=== PATIENT | female | born 1960 | race Caucasian/White ===

== ENCOUNTER 2017-12-25 19:55 | Emergency (ER) | payer OTHER ==
[~2017-12-25] VITALS: Ht 165.1 cm; Wt 69.4 kg
[~2017-12-25 19:55] MED LIST: AMITRIPTYLINE H10 MG PO; ASPIR 8181 MG PO; AZITHROMYCIN250 MG PO; CLONAZEPAM1 MG PO; COMBIVENT RESPIM4 GM INH; CYCLOBENZAPRINE5 MG PO; DOXEPIN HCL75 MG PO; FLUOXETINE HCL20 MG PO; IBUPROFEN600 MG PO; NORCO 7.5-3251 EACH PO; PERCOCET 5-3251 EACH PO; PERCOCET 7.5-31 EACH PO; PREDNISONE20 MG PO; PRILOSEC40 MG PO; PROAIR HFA8.5 GM INH
[2017-12-26] MEDS ORDERED: NUCYNTA50 MG PO (00:11)
[2017-12-26] MEDS ORDERED: CRUTCH1 EACH MISC (00:17)
== END 2017-12-26 00:35 | disposition home or self-care (01) ==
LOC: ED 19:55
DX: S83.91XA Sprain of unspecified site of right knee, initial encounter (principal); J44.9 Chronic obstructive pulmonary disease, unspecified; F32.9 Major depressive disorder, single episode, unspecified; F17.200 Nicotine dependence, unspecified, uncomplicated; Z79.899 Other long term (current) drug therapy; X50.1XXA Overexertion from prolonged static or awkward postures, initial encounter
CPT/HCPCS: 73562; 99283

== ENCOUNTER 2018-01-23 15:27 | Emergency (ER) | payer BC ==
[~2018-01-23] VITALS: Ht 165.1 cm; Wt 69.4 kg
[~2018-01-23 15:27] MED LIST changes: +CRUTCH1 EACH MISC; +NUCYNTA50 MG PO
[2018-01-23] MEDS ORDERED: SIMVASTATIN40 MG PO (15:42)
[2018-01-23] MEDS ORDERED: PREDNISONE20 MG PO (16:04)
[2018-01-23] MEDS ORDERED: LEVAQUIN500 MG PO (16:04)
[2018-01-23] MEDS ORDERED: VENTOLIN HFA18 GM INH (17:04)
[2018-01-23] MEDS ORDERED: GUAIFENESIN-COD10 ML PO (17:04)
== END 2018-01-23 17:12 | disposition home or self-care (01) ==
LOC: ED 15:27
DX: J44.1 Chronic obstructive pulmonary disease with (acute) exacerbation (principal); J40 Bronchitis, not specified as acute or chronic; F17.200 Nicotine dependence, unspecified, uncomplicated; F32.9 Major depressive disorder, single episode, unspecified; Z79.899 Other long term (current) drug therapy
CPT/HCPCS: 71045; 94640; 99283; J7512

== ENCOUNTER 2018-12-30 10:15 | Emergency (ER) | payer OTHER ==
[~2018-12-30] VITALS: Ht 165.1 cm; Wt 69.4 kg
[~2018-12-30 10:15] MED LIST changes: +GUAIFENESIN-COD10 ML PO; +IPRAT-ALBUT 0.5-3 ML INH; +LEVAQUIN500 MG PO; +LEVAQUIN750 MG PO; +OMEPRAZOLE40 MG PO; +PREDNISONE10 MG PO; +SIMVASTATIN40 MG PO; +VENTOLIN HFA18 GM INH
--- OUTSIDE RECORDS SUMMARY | 2018-12-30 10:34 | XMS ---
PreManage Notification: JENA GOMEZ Security Director Of Safety And Security Events No recent Security Events currently on file [facility] There are no care providers on record at this time. Ramila has no Care Guidelines for this patient. Black VISIT COUNT (12 MO.) 4 LAURA Henley TOTAL 4 NOTE: Visits indicate total known visits. ED/C VISIT TRACKING (12 MO.) 12/30/2018 10:15 [facility] Zhang [place] TYPE: Emergency COMPLAINT: - DIZZINESS 08/28/2018 16:13 [facility] [place] TYPE: Emergency COMPLAINT: - DIFFICULTY BREATHING DIAGNOSES: - Nicotine dependence, unspecified, uncomplicated - Pneumonia, unspecified organism - Shortness of breath - Other longterm (current) drug therapy - Chronic obstructive pulmonary disease with acute lower respiratory infection - Major depressive disorder, single episode, unspecified 06/04/2018 17:27 [facility] [place] TYPE: Emergency COMPLAINT: - HEAD LACERATION DIAGNOSES: - Other longterm (current) drug therapy - Laceration without foreign body of scalp, initial encounter - Unspecified injury of head, initial encounter - Chronic obstructive pulmonary disease, unspecified - Major depressive disorder, single episode, unspecified - Nicotine dependence, unspecified, uncomplicated - Encounter for immunization - Striking against or struck by other objects, initial encounter 01/23/2018 15:27 [facility] [place] TYPE: Emergency COMPLAINT: - DIFFICULTY BREATHING DIAGNOSES: - Bronchitis, not specified as acute or chronic - Nicotine dependence, unspecified, uncomplicated - Shortness of breath - Other supersonic engineer (current) drug therapy - Major depressive disorder, single episode, unspecified - Chronic obstructive pulmonary disease with (acute) exacerbation INPATIENT VISIT TRACKING (12 MO.) No inpatient visits to display in this time frame [id number]
[2018-12-30] MEDS ORDERED: MECLIZINE HCL25 MG PO (12:05)
--- NOTE | 2019-01-01 07:49 | EKG ---
[facility] [address] [facility] [place] [address] Signed Normal sinus rhythm Normal ECG No previous ECGs available Confirmed by PERLA CRISOSTOMO MD ([id number]) on 01/01/2019 7:49:07 AM Electronically Signed By: PERLA CRISOSTOMO MD 01/01/19 0749 PATIENT NAME: JENA GOMEZ SHRUTI Electrocardiogram DATE OF : 62 PHYSICIAN: PERLA CRISOSTOMO MD REPORT #: [id number] REPORT IS CONFIDENTIAL AND NOT TO BE RELEASED WITHOUT AUTHORIZATION
== END 2018-12-30 12:27 | disposition home or self-care (01) ==
LOC: ED 10:15
DX: R42 Dizziness and giddiness (principal); J44.9 Chronic obstructive pulmonary disease, unspecified; F32.9 Major depressive disorder, single episode, unspecified; F17.200 Nicotine dependence, unspecified, uncomplicated; Z79.899 Other long term (current) drug therapy
CPT/HCPCS: 71045; 80053; 84484; 85025; 87502; 93005; 93010; 99284-25

== ENCOUNTER 2021-06-20 15:18 | Emergency (ER) | payer MEDICARE ==
[~2021-06-20] VITALS: Ht 165.1 cm; Wt 68.0 kg
[~2021-06-20 15:18] MED LIST changes: +MECLIZINE HCL25 MG PO; +MEDROL4 MG PO; +NAPROSYN500 MG PO; +SINGULAIR10 MG PO
--- OUTSIDE RECORDS SUMMARY | 2021-06-20 15:20 | XMS ---
PreManage Notification: JENA GOMEZ Security Radio Performer Events No recent Security Events currently on file CRITERIA MET - [facility] CARE PROVIDERS JACKIE HAWKINS Physician Entry Level Paralegal 12/31/2018-Current PHONE: Unknown Ramila has no Care Guidelines for this patient. E.DMelisa VISIT COUNT (12 MO.) 1 LAURA Henley TOTAL 1 NOTE: Visits indicate total known visits. ED/UCC VISIT TRACKING (12 MO.) 06/20/2021 15:19 [facility] Zhang [place] TYPE: Emergency COMPLAINT: - FALL, L SIDE OF FACE PAIN, NAUSEA, DIZZINESS INPATIENT VISIT TRACKING (12 MO.) No inpatient visits to display in this time frame [email or web address]
[2021-06-20] MEDS ORDERED: LIDOCAINE HCL100 ML MT (15:32)
[2021-06-20] MEDS ORDERED: NYSTATIN100000 UN1 PO (15:32)
[2021-06-20] MEDS ORDERED: CEPHALEXIN500 M1 PO (18:51)
[2021-06-20] MEDS ORDERED: ONDANSETRON ODT8 MG PO (18:51)
== END 2021-06-20 19:36 | disposition home or self-care (01) ==
LOC: ED 15:18
DX: S06.0X0A Concussion without loss of consciousness, initial encounter (principal); K12.1 Other forms of stomatitis; N39.0 Urinary tract infection, site not specified; W10.9XXA Fall (on) (from) unspecified stairs and steps, initial encounter; J43.9 Emphysema, unspecified; F17.200 Nicotine dependence, unspecified, uncomplicated; Z79.899 Other long term (current) drug therapy
CPT/HCPCS: 80053; 81001; 85025; 87088; 96374; 96375; 99283-25; J0696; J1885; J2405; J7030

== ENCOUNTER 2022-01-22 16:05 | Emergency (ER) | payer OTHER, MEDICARE ==
[~2022-01-22] VITALS: Ht 165.1 cm; Wt 68.0 kg
[~2022-01-22 16:05] MED LIST changes: +CEPHALEXIN500 M1 PO; +LIDOCAINE HCL100 ML MT; +NYSTATIN100000 UN1 PO; +ONDANSETRON ODT8 MG PO
--- OUTSIDE RECORDS SUMMARY | 2022-01-22 16:08 | XMS ---
PreManage Notification: JENA GOMEZ Security Build Automation Engineer Events No recent Security Events currently on file CRITERIA MET - [facility] CARE PROVIDERS JACKIE HAWKINS Physician Bridge Worker Apprentice 06/21/2021-Current PHONE: Unknown Ramila has no Care Guidelines for this patient. EBarbara VISIT COUNT (12 MO.) 2 LAURA Henley TOTAL 2 NOTE: Visits indicate total known visits. ED/UCC VISIT TRACKING (12 MO.) 01/22/2022 16:05 [facility] [place] TYPE: Emergency COMPLAINT: - FALL/LOWER BACK PAIN HEAD PAIN 06/20/2021 15:19 [facility] [place] TYPE: Emergency COMPLAINT: - FALL DIAGNOSES: - Nicotine dependence, unspecified, uncomplicated - Concussion without loss of consciousness, initial encounter - Other fdc (current) drug therapy - Other forms of stomatitis - Nausea with vomiting, unspecified - Fall (on) (from) unspecified stairs and steps, initial encounter - Urinary tract infection, site not specified - Emphysema, unspecified INPATIENT VISIT TRACKING (12 MO.) No inpatient visits to display in this time frame [id number]
--- NOTE | 2022-01-23 18:23 | EKG ---
[facility] [address] [place], [place] [address] Signed Normal sinus rhythm Normal ECG When compared with ECG of 22-JAN-2022 17:42, (Unconfirmed) Previous ECG also normal sinus rhythm Confirmed by ELISABET VILLEGAS MD ([id number]) on 01/23/2022 6:23:13 PM Electronically Signed By: ELISABET VILLEGAS MD 01/23/22 1823 PATIENT NAME: ELPIDIO GOMEZHADLEY BAHENA Electrocardiogram DATE OF : 62 PHYSICIAN: ELISABET VILLEGAS MD REPORT #: [id number] REPORT IS CONFIDENTIAL AND NOT TO BE RELEASED WITHOUT AUTHORIZATION
== END 2022-01-22 18:54 | disposition home or self-care (01) ==
LOC: ED 16:05
DX: M54.2 Cervicalgia (principal); M54.50 Low back pain, unspecified; J43.9 Emphysema, unspecified; G47.00 Insomnia, unspecified; F17.200 Nicotine dependence, unspecified, uncomplicated; Z79.899 Other long term (current) drug therapy; W19.XXXA Unspecified fall, initial encounter; W22.8XXA Striking against or struck by other objects, initial encounter
CPT/HCPCS: 70450; 72125; 72128; 72131; 93005; 93010; 96374; 99284-25; J1170

== ENCOUNTER 2022-02-01 06:40 | Day surgery (SDC) | payer MEDICARE ==
[~2022-02-01] VITALS: Ht 165.1 cm; Wt 67.3 kg
--- NOTE | 2022-02-01 06:59 | NUR ---
FELL AT 2 WEEKS AGO. JUST FELL ON 2 STEP LADDER ? DIZZY THEN AFTERWARDS HAS PAIN R LOWER LEG ABOVE ANKLE INFRONT. WAS SEEN IN [facility] .
--- NOTE | 2022-02-01 09:06 | NUR ---
02/01/22 0906 Meghan Torres 0900 PATIENT SLEEPING. OPENS EYES WITH VERBAL STIMULI, BACK TO SLEEP WHEN NOT STIMULATED. RESP EVEN AND UNLABORED, NC AT 4 LITERS, SATS 100%, DECREASED TO 2 LITERS.
--- NOTE | 2022-02-01 11:04 | OR ---
[facility] [address] [place], [place] [address] Signed DATE OF OPERATION: 02/01/2022 SURGEON: Jazzmine James MD PREOPERATIVE DIAGNOSES: 1. History of hyperplastic colonic polyps in 2008 (48). 2. Internal anal skin tag. 3. Angulation at 50 cm. 4. Change in bowel habits with worsening constipation. 5. Probable history of pruritus ani. POSTOPERATIVE DIAGNOSES: 1. Long redundant colon. 2. Moderately poor bowel prep. 3. 4 mm polyp at 25 cm. 4. Mild melanosis coli. PROCEDURE: Colonoscopy with hot biopsy. ESTIMATED BLOOD LOSS: None. INDICATIONS: Cara is a 61-year-old female, asked to see me for followup colonoscopy. I helped with a colonoscopy back in 2008 at the age of 48. She talked about constipation back at that time. We did remove a hyperplastic polyp. She also appeared to have some mild pruritus ani at that time. She had an internal anal skin tag. She had an angulation at around 50 cm in her colon. Her prep had been fairly poor. We actually asked her to come back around a year. We encouraged her to use a double bowel prep. Her had last year from hepatitis C virus and liver failure. She has been on disability. She does work part-time at a local hotel doing laundry. She has been a long-time heavy smoker with significant COPD and a productive cough. Her granddaughter actually came with her to the office. There is no family history of colon cancer or polyps. She thinks maybe her constipation is worse. Therefore, she is describing a change in bowel habits. She has been using protein shakes to help with her constipation and her nutritional status. In the office, I had given her a pamphlet on colonoscopy. She understands the nature of the test. We had reviewed the risk including, but not limited to gas bloating, crampy abdominal pain, bleeding, perforation requiring surgery, and missed diagnosis. Also because of her overall frail status, her long history of smoking with COPD and asthma Electronically Signed By: JAZZMINE JAMES MD 02/01/22 1104 PATIENT NAME: CARA GOMEZ OPERATIVE REPORT DATE OF : 62 REPORT #: [id number] PHYSICIAN: JAZZMINE JAMES MD PCP: HINA HAWKINS REPORT IS CONFIDENTIAL AND NOT TO BE RELEASED WITHOUT AUTHORIZATION [facility] [address] [place], [place] [address] Signed component along with her daily need for escitalopram as well as clonazepam and doxepin, we asked that an anesthesia provider help with increased monitoring sedation with propofol. That proved to be a ortiz decision as she did quite well in that regard. She had expressed understanding and wished to proceed. PROCEDURE NOTE: Cara was taken into the endoscopy suite and placed in the left lateral decubitus position. She was given monitored anesthesia care with propofol per our nurse welder/fitter. A digital rectal exam was performed and we immediately encountered liquid particulate stool matter. She has good sphincter tone. Really, no external hemorrhoids. A little erythema around the anus from the prep, but otherwise seems to be quite good. The adult colonoscope was introduced and advanced under direct visualization of the camera. Unfortunately, her prep was moderately poor once again. She took extra sedation. We used some abdominal compression. She has a very thin abdominal wall, but very compliant without much muscle tone. We could easily see the tip of our light pass through the colon. It took us a while to get through all the long redundant colon and at least three areas of angulated colon. We irrigated and suctioned out quite a bit of particulate stool matter. We finally made it past the hepatic flexure and then down into the cecum itself. We could see the appendiceal orifice and ileocecal valve. We could see some liquid stool coming out of the ileocecal valve. We could easily see the light in the right lower quadrant of her abdomen and palpate that area. The scope was then slowly withdrawn. We took pictures throughout for photodocumentation. We continued to irrigate and suction out stool as we went. We had to clean the camera few times. We found just a very tiny 4 mm polyp at about 25 cm. It was easily removed with a hot biopsy forceps. We had retroflexed the scope in the rectum and despite all the irrigation and suction, we could not see the anus itself due to the liquid particulate stool matter. After this, the gas was suctioned out and colonoscope removed. Cara tolerated the procedure quite well. RECOMMENDATIONS: I will see Cara back in my office in 7 to 14 days to review her results. We will discuss the tiger striping we found throughout her colon consistent with melanosis coli. In the future, she might need 2 full days of liquid diet and bowel prep. Jazzmine James MD ALB/MODL /[id number] Electronically Signed By: JAZZMINE JAMES MD 02/01/22 1104 PATIENT NAME: CARA GOMEZ SHRUTI OPERATIVE REPORT DATE OF : 62 REPORT #: [id number] PHYSICIAN: JAZZMINE JAMES MD PCP: HINA HAWKINS REPORT IS CONFIDENTIAL AND NOT TO BE RELEASED WITHOUT AUTHORIZATION [address] [place] [address] Signed cc: MD Hina Koroma PA Copies: JAZZMINE JAMES MD, LINDA PA ~ Electronically Signed By: JAZZMINE JAMES MD 02/01/22 1104 PATIENT NAME: CARA GOMEZ OPERATIVE REPORT DATE OF : 62 REPORT #: [id number] PHYSICIAN: JAZZMINE JAMES MD PCP: HINA HAWKINS REPORT IS CONFIDENTIAL AND NOT TO BE RELEASED WITHOUT AUTHORIZATION
--- NOTE | 2022-02-05 14:38 | PATH ---
[facility] [address] [place], [place] [address] Signed SPECIMEN(S): A COLON POLYP AT 25 CM SPECIMEN SOURCE: A. COLON POLYP AT 25 CM CLINICAL HISTORY: Hx of hyperplastic polyps; change in bowel habits; constipation. Post op: Polyp. FINAL PATHOLOGIC DIAGNOSIS: Colon, polyp at 25 cm, polypectomy: - Hyperplastic polyp. - Negative for dysplasia or malignancy. NAL:cml:C2NR MICROSCOPIC EXAMINATION: Histologic sections of all submitted blocks are examined by light microscopy. These findings, together with the gross examination, support the pathologic diagnosis. GROSS DESCRIPTION: The specimen, labeled "NM, colon polyp at 25 cm," is received in formalin and consists of one henry soft tissue fragment(s) that measure 0.5 cm in greatest dimension. The specimen is entirely submitted in cassette (A1). JS (under the direct supervision of a pathologist) The Gross Description was prepared using a voice recognition system. The report was reviewed for accuracy; however, sound-alike word errors, addition and/or deletions may occur. If there is any question about this report, please contact Client Services. PERFORMING LABORATORY: The technical component was performed by [facility], [address] [place] [id number] ([employer]: Mirian Tilley MD; CLIA# [id number]). [facility] [address] [address] (CLIA# [id number]). Diagnostician: Shelley Diallo MD Pathologist Electronically Signed 02/05/2022 PATIENT NAME: JENA GOMEZ PATHOLOGY DATE OF : 62 REPORT #: [id number] PHYSICIAN: RAFA PATHOLOGY PCP: JACKIE HAWKINS REPORT IS CONFIDENTIAL AND NOT TO BE RELEASED WITHOUT AUTHORIZATION [address] [address] Signed Copies: ~ PATIENT NAME: JENA GOMEZ PATHOLOGY DATE OF : 62 REPORT #: [id number] PHYSICIAN: RAFA PATHOLOGY PCP: JACKIE HAWKINS REPORT IS CONFIDENTIAL AND NOT TO BE RELEASED WITHOUT AUTHORIZATION
== END 2022-02-01 08:46 | disposition home or self-care (01) ==
LOC: OPS 06:40 → DS 06:40 → OPS 07:45 → DS 07:45 → OPS 08:46
PROVIDERS: ATTEND Colon & Rectal Surgery
PROC: 0DBE8ZZ Excision of Large Intestine, Via Natural or Artificial Opening Endoscopic (ICD-10-PCS; principal; 2022-02-01 07:45)
DX: K59.09 Other constipation (principal); K63.5 Polyp of colon; Q43.8 Other specified congenital malformations of intestine; K63.89 Other specified diseases of intestine; K64.4 Residual hemorrhoidal skin tags; K21.9 Gastro-esophageal reflux disease without esophagitis; J43.9 Emphysema, unspecified; F17.210 Nicotine dependence, cigarettes, uncomplicated; E78.5 Hyperlipidemia, unspecified; Z87.19 Personal history of other diseases of the digestive system
CPT/HCPCS: J2001; J2704; J7121

== ENCOUNTER 2022-02-03 19:33 | Emergency (ER) | payer MEDICARE ==
[~2022-02-03] VITALS: Ht 165.1 cm; Wt 63.5 kg
--- OUTSIDE RECORDS SUMMARY | 2022-02-03 19:36 | XMS ---
PreManage Notification: JENA GOMEZ Security Life Cycle Assessment Analyst Events No recent Security Events currently on file CRITERIA MET - [facility] - 2 Visits in 30 Days CARE PROVIDERS JACKIE HAWKINS Physician Old Testament Professor 06/21/2021-Current PHONE: Unknown Ramila has no Care Guidelines for this patient. Black VISIT COUNT (12 MO.) 3 [facility] TOTAL 3 NOTE: Visits indicate total known visits. ED/C VISIT TRACKING (12 MO.) 02/03/2022 19:34 [facility]UR[facility] Zhang [place] TYPE: Emergency COMPLAINT: - ANKLE PAIN 01/22/2022 16:05 [facility]UR[facility] Zhang [place] TYPE: Emergency COMPLAINT: - FALL/LOWER BACK PAIN HEAD PAIN DIAGNOSES: - Striking against or struck by other objects, initial encounter - Other chcf (current) drug therapy - Emphysema, unspecified - Unspecified fall, initial encounter - LOW BACK PAIN, UNSPECIFIED - Cervicalgia - Nicotine dependence, unspecified, uncomplicated - Insomnia, unspecified 06/20/2021 15:19 LAURA Zhang [place] TYPE: Emergency COMPLAINT: - FALL DIAGNOSES: - Nicotine dependence, unspecified, uncomplicated - Concussion without loss of consciousness, initial encounter - Other longwall headgate operator (current) drug therapy - Other forms of stomatitis - Nausea with vomiting, unspecified - Fall (on) (from) unspecified stairs and steps, initial encounter - Urinary tract infection, site not specified - Emphysema, unspecified INPATIENT VISIT TRACKING (12 MO.) No inpatient visits to display in this time frame [id number]
[2022-02-03] MEDS ORDERED: ESCITALOPRAM OX20 MG PO (19:47)
[2022-02-03] MEDS ORDERED: OXYBUTYNIN CHLO15 MG PO (19:47)
[2022-02-03] MEDS ORDERED: MOBIC15 MG PO (20:50)
== END 2022-02-03 21:09 | disposition home or self-care (01) ==
LOC: ED 19:33
DX: S93.401A Sprain of unspecified ligament of right ankle, initial encounter (principal); J43.9 Emphysema, unspecified; G47.00 Insomnia, unspecified; F17.200 Nicotine dependence, unspecified, uncomplicated; Z79.899 Other long term (current) drug therapy; W19.XXXA Unspecified fall, initial encounter
CPT/HCPCS: 73610; 99283-25

== ENCOUNTER 2022-02-27 09:46 | Emergency (ER) | payer MEDICARE, OTHER ==
[~2022-02-27] VITALS: Ht 165.1 cm; Wt 59.9 kg
[~2022-02-27 09:46] MED LIST changes: +ESCITALOPRAM OX20 MG PO; +MOBIC15 MG PO; +OXYBUTYNIN CHLO15 MG PO
--- OUTSIDE RECORDS SUMMARY | 2022-02-27 09:48 | XMS ---
PreManage Notification: JENA GOMEZ Security Compliance Project Manager Events No recent Security Events currently on file CRITERIA MET - [facility] - 2 Visits in 30 Days CARE PROVIDERS JACKIE HAWKINS Physician Sugar Controller 06/21/2021-Current PHONE: Unknown Ramila has no Care Guidelines for this patient. Black VISIT COUNT (12 MO.) 4 [facility] TOTAL 4 NOTE: Visits indicate total known visits. ED/C VISIT TRACKING (12 MO.) 02/27/2022 09:46 [facility] Zhang [place] TYPE: Emergency COMPLAINT: - CONSTIPATION 02/03/2022 19:34 [facility] [place] TYPE: Emergency COMPLAINT: - ANKLE PAIN DIAGNOSES: - Sprain of unspecified ligament of right ankle, initial encounter - Unspecified injury of right ankle, initial encounter - Nicotine dependence, unspecified, uncomplicated - Insomnia, unspecified - Unspecified fall, initial encounter - Other intermediate school teacher (current) drug therapy - Emphysema, unspecified 01/22/2022 16:05 [facility]UR[facility] Zhang [place] TYPE: Emergency COMPLAINT: - FALL/LOWER BACK PAIN HEAD PAIN DIAGNOSES: - Striking against or struck by other objects, initial encounter - Other prison (current) drug therapy - Emphysema, unspecified - Unspecified fall, initial encounter - LOW BACK PAIN, UNSPECIFIED - Cervicalgia - Nicotine dependence, unspecified, uncomplicated - Insomnia, unspecified - Low back pain, unspecified 06/20/2021 15:[address] [facility] [place] TYPE: Emergency COMPLAINT: - FALL DIAGNOSES: - Nicotine dependence, unspecified, uncomplicated - Concussion without loss of consciousness, initial encounter - Other prison (current) drug therapy - Other forms of stomatitis - Nausea with vomiting, unspecified - Fall (on) (from) unspecified stairs and steps, initial encounter - Urinary tract infection, site not specified - Emphysema, unspecified INPATIENT VISIT TRACKING (12 MO.) No inpatient visits to display in this time frame [id number]
[2022-02-27] MEDS ORDERED: FLEET ENEMA133 ML PR (11:29)
== END 2022-02-27 11:38 | disposition home or self-care (01) ==
LOC: ED 09:46
DX: K59.00 Constipation, unspecified (principal); J43.9 Emphysema, unspecified; G47.00 Insomnia, unspecified; F17.200 Nicotine dependence, unspecified, uncomplicated; Z79.899 Other long term (current) drug therapy; Z79.51 Long term (current) use of inhaled steroids
CPT/HCPCS: 74022; 81001; 99283-25

== ENCOUNTER 2022-04-15 12:22 | Emergency (ER) | payer MEDICARE, OTHER ==
[~2022-04-15] VITALS: Ht 165.1 cm; Wt 63.0 kg
[~2022-04-15 12:22] MED LIST changes: +FLEET ENEMA133 ML PR
--- OUTSIDE RECORDS SUMMARY | 2022-04-15 14:13 | XMS ---
PreManage Notification: JENA GOMEZ Security Motor And Generator Brush Maker Events No recent Security Events currently on file CRITERIA MET - [facility] - 2 Visits in 30 Days CARE PROVIDERS JACKIE HAWKINS Physician Clinical Physician Assistant 06/21/2021-Current PHONE: Unknown Ramila has no Care Guidelines for this patient. Black VISIT COUNT (12 MO.) 6 [facility] TOTAL 6 NOTE: Visits indicate total known visits. ED/C VISIT TRACKING (12 MO.) 04/15/2022 12:23 [facility] Zhang [place] TYPE: Emergency COMPLAINT: - SHORTNESS OF BREATH 04/14/2022 19:28 [facility] [place] TYPE: Emergency COMPLAINT: - SHORTNESS OF BREATH 02/27/2022 09:46 [facility] [place] TYPE: Emergency COMPLAINT: - CONSTIPATION DIAGNOSES: - terminal operations supervisor (current) use of inhaled steroids - Insomnia, unspecified - Nicotine dependence, unspecified, uncomplicated - Other shelter (current) drug therapy - Constipation, unspecified - Emphysema, unspecified 02/03/2022 19:34 [facility] [place] TYPE: Emergency COMPLAINT: - ANKLE PAIN DIAGNOSES: - Sprain of unspecified ligament of right ankle, initial encounter - Unspecified injury of right ankle, initial encounter - Nicotine dependence, unspecified, uncomplicated - Insomnia, unspecified - Unspecified fall, initial encounter - Other shelter (current) drug therapy - Emphysema, unspecified 01/22/2022 16:05 [facility] Zhang [place] TYPE: Emergency COMPLAINT: - FALL/LOWER BACK PAIN HEAD PAIN DIAGNOSES: - Striking against or struck by other objects, initial encounter - Other shelter (current) drug therapy - Emphysema, unspecified - Unspecified fall, initial encounter - LOW BACK PAIN, UNSPECIFIED - Cervicalgia - Nicotine dependence, unspecified, uncomplicated - Insomnia, unspecified - Low back pain, unspecified 06/20/2021 15:19 [facility] [place] TYPE: Emergency COMPLAINT: - FALL DIAGNOSES: - Nicotine dependence, unspecified, uncomplicated - Concussion without loss of consciousness, initial encounter - Other shelter (current) drug therapy - Other forms of stomatitis - Nausea with vomiting, unspecified - Fall (on) (from) unspecified stairs and steps, initial encounter - Urinary tract infection, site not specified - Emphysema, unspecified INPATIENT VISIT TRACKING (12 MO.) No inpatient visits to display in this time frame [id number]
== END 2022-04-15 15:10 | disposition home or self-care (01) ==
LOC: ED 12:22
DX: J44.1 Chronic obstructive pulmonary disease with (acute) exacerbation (principal); F17.200 Nicotine dependence, unspecified, uncomplicated
CPT/HCPCS: 94640; 99406; J7512

== ENCOUNTER 2022-06-22 12:25 | Emergency (ER) | payer MEDICARE, OTHER ==
[~2022-06-22] VITALS: Ht 165.1 cm; Wt 63.0 kg
--- OUTSIDE RECORDS SUMMARY | 2022-06-22 12:28 | XMS ---
PreManage Notification: JENA GOMEZ Security City Councilman Events No recent Security Events currently on file CRITERIA MET - [facility] - 6 ED Visits in 6 Months CARE PROVIDERS JACKIE HAWKINS Physician Vice President Digital Strategist 06/21/2021-Current PHONE: Unknown Ramila has no Care Guidelines for this patient. EBarbara VISIT COUNT (12 MO.) 6 [facility] TOTAL 6 NOTE: Visits indicate total known visits. ED/C VISIT TRACKING (12 MO.) 06/22/2022 12:26 [facility] [place] TYPE: Emergency COMPLAINT: - SOB 04/15/2022 12:23 [facility] [place] TYPE: Emergency COMPLAINT: - SHORTNESS OF BREATH DIAGNOSES: - Shortness of breath - Nicotine dependence, cigarettes, uncomplicated - Chronic obstructive pulmonary disease with (acute) exacerbation - Nicotine dependence, unspecified, uncomplicated 04/14/2022 19:28 [facility] [place] TYPE: Emergency COMPLAINT: - SHORTNESS OF BREATH DIAGNOSES: - Shortness of breath - Chronic obstructive pulmonary disease with (acute) exacerbation - Nicotine dependence, unspecified, uncomplicated - Other nursing home (current) drug therapy 02/27/2022 09:46 [facility] [place] TYPE: Emergency COMPLAINT: - CONSTIPATION DIAGNOSES: - terminal press operator (current) use of inhaled steroids - Insomnia, unspecified - Nicotine dependence, unspecified, uncomplicated - Other supervisor long goods (current) drug therapy - Constipation, unspecified - Emphysema, unspecified 02/03/2022 19:[address] [facility] [place] [place] TYPE: Emergency COMPLAINT: - ANKLE PAIN DIAGNOSES: - Sprain of unspecified ligament of right ankle, initial encounter - Unspecified injury of right ankle, initial encounter - Nicotine dependence, unspecified, uncomplicated - Insomnia, unspecified - Unspecified fall, initial encounter - Other nursing home (current) drug therapy - Emphysema, unspecified 01/22/2022 16:[address] [facility] [address] [place] TYPE: Emergency COMPLAINT: - FALL/LOWER BACK PAIN HEAD PAIN DIAGNOSES: - Striking against or struck by other objects, initial encounter - Other supervisor long goods (current) drug therapy - Emphysema, unspecified - Unspecified fall, initial encounter - LOW BACK PAIN, UNSPECIFIED - Cervicalgia - Nicotine dependence, unspecified, uncomplicated - Insomnia, unspecified - Low back pain, unspecified INPATIENT VISIT TRACKING (12 MO.) No inpatient visits to display in this time frame [id number]
[2022-06-22] MEDS ORDERED: PREDNISONE20 MG PO (13:16)
[2022-06-22] MEDS ORDERED: DOXYCYCLINE HY100 MG PO (13:22)
== END 2022-06-22 14:20 | disposition home or self-care (01) ==
LOC: ED 12:25
DX: J43.9 Emphysema, unspecified (principal); F17.200 Nicotine dependence, unspecified, uncomplicated; Z79.899 Other long term (current) drug therapy
CPT/HCPCS: 71045; 94640; 99285-25; J7512

== ENCOUNTER 2022-09-21 11:12 | Emergency (ER) | payer MEDICARE, OTHER ==
[~2022-09-21] VITALS: Ht 165.1 cm; Wt 63.0 kg
[~2022-09-21 11:12] MED LIST changes: +DOXYCYCLINE HY100 MG PO
--- OUTSIDE RECORDS SUMMARY | 2022-09-21 11:15 | XMS ---
PreManage Notification: JENA GOMEZ Security Property Management Coordinator Events No recent Security Events currently on file CRITERIA MET - [facility] CARE PROVIDERS JACKIE HAWKINS Physician Records Custodian 06/21/2021-Current PHONE: Unknown Ramila has no Care Guidelines for this patient. EBarbara VISIT COUNT (12 MO.) 7 [facility] TOTAL 7 NOTE: Visits indicate total known visits. ED/C VISIT TRACKING (12 MO.) 09/21/2022 11:12 [facility] [place] TYPE: Emergency COMPLAINT: - COLD SYMPTOMS 06/22/2022 12:26 [facility] [place] TYPE: Emergency COMPLAINT: - SOB DIAGNOSES: - Other longwall shearer operator (current) drug therapy - Emphysema, unspecified - Nicotine dependence, unspecified, uncomplicated - Cough, unspecified 04/15/2022 12:23 [facility] [place] TYPE: Emergency COMPLAINT: - SHORTNESS OF BREATH DIAGNOSES: - Chronic obstructive pulmonary disease with (acute) exacerbation - Shortness of breath - Nicotine dependence, unspecified, uncomplicated - Nicotine dependence, cigarettes, uncomplicated 04/14/2022 19:28 [facility] [place] TYPE: Emergency COMPLAINT: - SHORTNESS OF BREATH DIAGNOSES: - Nicotine dependence, unspecified, uncomplicated - Shortness of breath - Other detention (current) drug therapy - Chronic obstructive pulmonary disease with (acute) exacerbation 02/27/2022 09:46 [facility] [place] TYPE: Emergency COMPLAINT: - CONSTIPATION DIAGNOSES: - Nicotine dependence, unspecified, uncomplicated - correction (current) use of inhaled steroids - Emphysema, unspecified - Other detention (current) drug therapy - Insomnia, unspecified - Constipation, unspecified 02/03/2022 19:34 [facility] [place] TYPE: Emergency COMPLAINT: - ANKLE PAIN DIAGNOSES: - Nicotine dependence, unspecified, uncomplicated - Sprain of unspecified ligament of right ankle, initial encounter - Other longwall shearer operator (current) drug therapy - Insomnia, unspecified - Unspecified injury of right ankle, initial encounter - Emphysema, unspecified - Unspecified fall, initial encounter 01/22/2022 16:05 [facility] [place] TYPE: Emergency COMPLAINT: - FALL/LOWER BACK PAIN HEAD PAIN DIAGNOSES: - Emphysema, unspecified - Striking against or struck by other objects, initial encounter - Insomnia, unspecified - Cervicalgia - Unspecified fall, initial encounter - Other detention (current) drug therapy - Low back pain, unspecified - Nicotine dependence, unspecified, uncomplicated - LOW BACK PAIN, UNSPECIFIED INPATIENT VISIT TRACKING (12 MO.) No inpatient visits to display in this time frame [email or web address]
[2022-09-21] MEDS ORDERED: DOXYCYCLINE HY100 MG PO (12:54)
[2022-09-21] MEDS ORDERED: PREDNISONE20 MG PO (12:54)
== END 2022-09-21 14:01 | disposition home or self-care (01) ==
LOC: ED 11:12
DX: J44.1 Chronic obstructive pulmonary disease with (acute) exacerbation (principal); F17.200 Nicotine dependence, unspecified, uncomplicated; Z79.899 Other long term (current) drug therapy
CPT/HCPCS: 71045; 94640; 99285-25; J7512

== ENCOUNTER 2022-12-22 17:52 | Emergency (ER) | payer MEDICARE, OTHER ==
[~2022-12-22] VITALS: Ht 165.1 cm; Wt 73.4 kg
--- OUTSIDE RECORDS SUMMARY | 2022-12-22 17:55 | XMS ---
PreManage Notification: JENA GOMEZ Security Services Coordinator Events No recent Security Events currently on file CRITERIA MET - [place] CARE PROVIDERS -[place]- Dentist: Auto Body Repairer [employer] [facility] PHONE: [phone] JACKIE HAWKINS Physician Advertising Clerk 06/21/2021-Current PHONE: Unknown Ramila has no Care Guidelines for this patient. Black VISIT COUNT (12 MO.) Lovely Henley TOTAL 8 NOTE: Visits indicate total known visits. ED/UCC VISIT TRACKING (12 MO.) 12/22/2022 17:52 [facility] [place] TYPE: Emergency COMPLAINT: - SHORTNESS OF BREATH 09/21/2022 11:12 [facility] [place] TYPE: Emergency COMPLAINT: - COLD SYMPTOMS DIAGNOSES: - Chronic obstructive pulmonary disease with (acute) exacerbation - Nicotine dependence, unspecified, uncomplicated - Other quality control assessor (current) drug therapy - Cough, unspecified 06/22/2022 12:26 [facility] [place] TYPE: Emergency COMPLAINT: - SOB DIAGNOSES: - Other long-term (current) drug therapy - Emphysema, unspecified - Nicotine dependence, unspecified, uncomplicated - Cough, unspecified 04/15/2022 12:23 [facility] [place] [place] TYPE: Emergency COMPLAINT: - SHORTNESS OF BREATH DIAGNOSES: - Chronic obstructive pulmonary disease with (acute) exacerbation - Shortness of breath - Nicotine dependence, unspecified, uncomplicated - Nicotine dependence, cigarettes, uncomplicated 04/14/2022 19:28 [facility] [place] [place] TYPE: Emergency COMPLAINT: - SHORTNESS OF BREATH DIAGNOSES: - Nicotine dependence, unspecified, uncomplicated - Shortness of breath - Other long-term (current) drug therapy - Chronic obstructive pulmonary disease with (acute) exacerbation 02/27/2022 09:46 [facility] [place] TYPE: Emergency COMPLAINT: - CONSTIPATION DIAGNOSES: - Constipation, unspecified - Nicotine dependence, unspecified, uncomplicated - nursing home (current) use of inhaled steroids - Emphysema, unspecified - Other quality control assessor (current) drug therapy - Insomnia, unspecified 02/03/2022 19:34 [facility] [place] TYPE[place] COMPLAINT: - ANKLE PAIN DIAGNOSES: - Emphysema, unspecified - Unspecified fall, initial encounter - Nicotine dependence, unspecified, uncomplicated - Sprain of unspecified ligament of right ankle, initial encounter - Other quality control assessor (current) drug therapy - Insomnia, unspecified - Unspecified injury of right ankle, initial encounter 01/22/2022 16:05 [facility] [place] TYPE: [place] COMPLAINT: - FALL/LOWER BACK PAIN HEAD PAIN DIAGNOSES: - Low back pain, unspecified - Nicotine dependence, unspecified, uncomplicated - LOW BACK PAIN, UNSPECIFIED - Emphysema, unspecified - Striking against or struck by other objects, initial encounter - Insomnia, unspecified - Cervicalgia - Unspecified fall, initial encounter - Other long-term (current) drug therapy INPATIENT VISIT TRACKING (12 MO.) No inpatient visits to display in this time frame [id number]
--- NOTE | 2022-12-23 07:17 | EKG ---
[facility] [address] [place], [place] [address] Signed Normal sinus rhythm Normal ECG When compared with ECG of 14-APR-2022 19:39, No significant change was found Confirmed by ELISABET VILLEGAS MD ([id number]) on 12/23/2022 7:17:34 AM Electronically Signed By: ELISABET VILLEGAS MD 12/23/22 0717 PATIENT NAME: DELONTEBELLEJAYCEJENA BAHENA Electrocardiogram DATE OF : 62 PHYSICIAN: ELISABET VILLEGAS MD REPORT #: [id number] REPORT IS CONFIDENTIAL AND NOT TO BE RELEASED WITHOUT AUTHORIZATION
== END 2022-12-22 19:35 | disposition home or self-care (01) ==
LOC: ED 17:52
DX: J44.1 Chronic obstructive pulmonary disease with (acute) exacerbation (principal); G47.00 Insomnia, unspecified; F17.200 Nicotine dependence, unspecified, uncomplicated; Z79.899 Other long term (current) drug therapy; Z79.52 Long term (current) use of systemic steroids; Z20.822 Contact with and (suspected) exposure to COVID-19
CPT/HCPCS: 36415; 71045; 80053; 83735; 84484; 85025; 87502; 99285-25; U0003

== ENCOUNTER → 2023-03-20 | Emergency (ER) | payer BC, MEDICARE, OTHER ==
[~2023-03-20] VITALS: Ht 165.1 cm; Wt 71.9 kg
[~2023-03-20] MED LIST changes: +MYRBETRIQ50 MG PO
--- OUTSIDE RECORDS SUMMARY | 2023-03-20 23:53 | XMS ---
PreManage Notification: JENA GOMEZ Security Door Cutter Events No recent Security Events currently on file CRITERIA MET - [place] CARE PROVIDERS -[place]- Dentist: [employer] [facility] PHONE: [phone] JACKIE HAWKINS Physician Slat Basket Maker Machine 06/21/2021-Current PHONE: Unknown Ramila has no Care Guidelines for this patient. Black VISIT COUNT (12 MO.) Shwetha Henley TOTAL 6 NOTE: Visits indicate total known visits. ED/UCC VISIT TRACKING (12 MO.) 03/20/2023 23:51 [facility] [place] TYPE[place] Emergency COMPLAINT: - SOB,LT EAR PAIN 12/22/2022 17:52 [facility] [place] TYPE: Emergency COMPLAINT: - SHORTNESS OF BREATH DIAGNOSES: - Chronic obstructive pulmonary disease with (acute) exacerbation - Contact with and (suspected) exposure to COVID-19 - Cough, unspecified - Insomnia, unspecified - assisted (current) use of systemic steroids - Nicotine dependence, unspecified, uncomplicated - Other terminal gauger supervisor (current) drug therapy 09/21/2022 11:12 [facility] [place] TYPE: Emergency COMPLAINT: - COLD SYMPTOMS DIAGNOSES: - Chronic obstructive pulmonary disease with (acute) exacerbation - Cough, unspecified - Nicotine dependence, unspecified, uncomplicated - Other fpc (current) drug therapy 06/22/2022 12:[address] [facility] [address] [facility] [place] TYPE: Emergency COMPLAINT: - SOB DIAGNOSES: - Cough, unspecified - Emphysema, unspecified - Nicotine dependence, unspecified, uncomplicated - Other terminal gauger supervisor (current) drug therapy 04/15/2022 12:23 [facility] [place] [place] TYPE: Emergency COMPLAINT: - SHORTNESS OF BREATH DIAGNOSES: - Chronic obstructive pulmonary disease with (acute) exacerbation - Nicotine dependence, cigarettes, uncomplicated - Nicotine dependence, unspecified, uncomplicated - Shortness of breath 04/14/2022 19:28 [facility] [place] TYPE: Emergency COMPLAINT: - SHORTNESS OF BREATH DIAGNOSES: - Chronic obstructive pulmonary disease with (acute) exacerbation - Nicotine dependence, unspecified, uncomplicated - Other terminal gauger supervisor (current) drug therapy - Shortness of breath INPATIENT VISIT TRACKING (12 MO.) No inpatient visits to display in this time frame [id number]
[2023-03-21 01:11] VITALS: BP 134/87
== END ==
LOC: ED 23:50
DX: J44.1 Chronic obstructive pulmonary disease with (acute) exacerbation (principal); F17.200 Nicotine dependence, unspecified, uncomplicated; Z79.899 Other long term (current) drug therapy; Z79.52 Long term (current) use of systemic steroids
CPT/HCPCS: 71045; 80053; 83735; 84484; 85025; 99285-25

== ENCOUNTER 2023-09-06 13:36 | Emergency (ER) | payer MEDICARE, OTHER ==
[~2023-09-06] VITALS: Ht 165.1 cm; Wt 72.8 kg
[~2023-09-06 13:36] MED LIST changes: +FLOVENT HFA12 G1 INH
--- OUTSIDE RECORDS SUMMARY | 2023-09-06 13:39 | XMS ---
PreManage Notification: JENA GOMEZ Security Electrodynamicist Events No recent Security Events currently on file CRITERIA MET - [place] CARE PROVIDERS JACKIE HAWKINS Physician Third Mate 06/21/2021-Current PHONE: Unknown -[place]- Dentist: Algebraist [facility] PHONE: [phone] Ramila has no Care Guidelines for this patient. Black VISIT COUNT (12 MO.) Shwetha Henley TOTAL 6 NOTE: Visits indicate total known visits. ED/UCC VISIT TRACKING (12 MO.) 09/06/2023 13:[address] [facility] [place] TYPE: Emergency COMPLAINT: - L FLANK PAIN, PAINFUL URINATION 06/14/2023 16:41 [facility] [place] TYPE: Emergency COMPLAINT: - SHORTNESS OF BREATH DIAGNOSES: - Chronic obstructive pulmonary disease with (acute) exacerbation - Emphysema, unspecified - Nicotine dependence, unspecified, uncomplicated - Other halfway (current) drug therapy - Shortness of breath 05/09/2023 18:49 [facility] [place] TYPE: Emergency COMPLAINT: - WEAKNESS DIAGNOSES: - Chronic obstructive pulmonary disease with (acute) exacerbation - Insomnia, unspecified - Nicotine dependence, unspecified, uncomplicated - Other halfway (current) drug therapy - Shortness of breath 03/20/2023 23:51 [facility] [place] TYPE: Emergency COMPLAINT: - SOB,LT EAR PAIN DIAGNOSES: - Chronic obstructive pulmonary disease with (acute) exacerbation - watermaster (current) use of systemic steroids - Nicotine dependence, unspecified, uncomplicated - Other halfway (current) drug therapy - Shortness of breath 12/22/2022 17:52 [facility] [place] TYPE: Emergency COMPLAINT: - SHORTNESS OF BREATH DIAGNOSES: - Chronic obstructive pulmonary disease with (acute) exacerbation - Contact with and (suspected) exposure to COVID-19 - Cough, unspecified - Insomnia, unspecified - nursing home (current) use of systemic steroids - Nicotine dependence, unspecified, uncomplicated - Other watermaster (current) drug therapy 09/21/2022 11:12 [facility] [place] TYPE: Emergency COMPLAINT: - COLD SYMPTOMS DIAGNOSES: - Chronic obstructive pulmonary disease with (acute) exacerbation - Cough, unspecified - Nicotine dependence, unspecified, uncomplicated - Other watermaster (current) drug therapy INPATIENT VISIT TRACKING (12 MO.) No inpatient visits to display in this time frame [email or web address]
[2023-09-06 14:09] LABS: BILIRUBIN, URINE NEGATIVE (negative); BLOOD/HGB, URINE MODERATE (Negative); KETONE, URINE NEGATIVE (Negative); LEUK ESTERASE, URINE MODERATE (negative); NITRITE, URINE POSITIVE (negative); PH, URINE 6.5 (5-7)
[2023-09-06 14:16] LABS: BACTERIA, URINE 1+ /hpf (negative); CASTS, URINE NONE SEEN \\lpf; COLLECTION TYPE, URINE CLEAN CATCH; CRYSTALS, URINE NONE SEEN (0-1+); EPITHELIAL CELLS, URINE SQUAMOUS 1+ /lpf (0-1+); REFLEX CULTURE, URINE Yes (No); WHITE BLOOD CELLS, URINE >50 /HPF (0-5)
[2023-09-06 14:49] LABS: MCH 29.8 (27-36); MCHC 32.3 g/dl (30-36); MCV 92.3 fl (81-99)
[2023-09-06 14:52] LABS: BASOPHILS 0.9 % (0-2); EOSINOPHILS 1.6 % (0-6); HEMATOCRIT 43.8 % (35.0-50.0); HEMOGLOBIN 14.1 g/dL (12.0-18.0); LYMPHOCYTES 19.7 % (24-44); MONOCYTES 5.3 % (0-12); NEUTROPHILS 72.5 % (39-80); PLATELET COUNT 415 K/uL (140-440); RBC 4.74 M/ul (4.3-5.7); RDW 14.5 (10.5-15.0)
[2023-09-06 15:03] LABS: ALBUMIN 4.3 g/dL (3.4-5.0); ALBUMIN/GLOBULIN RATIO 1.34 (1.1-2.4); ANION GAP 8.8 (7-21); BILIRUBIN, TOTAL 0.7 ng/dL (0.2-1.0); BUN/CREATININE RATIO 17.44 (6.0-28.6); CALCIUM 9.3 mg/dL (8.5-10.1); CREATININE, SERUM 0.86 mg/dL (0.55-1.02); POTASSIUM 3.8 mmol/L (3.5-5.1); PROTEIN, TOTAL 7.5 g/dL (6.4-8.2)
[2023-09-06] MEDS ORDERED: TRAMADOL HCL50 MG PO (16:47)
[2023-09-06] MEDS ORDERED: CEPHALEXIN500 M1 PO (16:47)
[2023-09-06 17:05] VITALS: BP 127/60
== END 2023-09-06 17:05 | disposition home or self-care (01) ==
LOC: ED 13:36
PROVIDERS: Internal Medicine
DX: N39.0 Urinary tract infection, site not specified (principal); J43.9 Emphysema, unspecified; F17.200 Nicotine dependence, unspecified, uncomplicated; Z79.899 Other long term (current) drug therapy
CPT/HCPCS: 36415; 80053; 81001; 85025; 87088; 96365; 96375; 99284-25; J0696; J1885

== ENCOUNTER 2023-11-05 10:50 | Emergency (ER) | payer MEDICARE, OTHER ==
[~2023-11-05] VITALS: Ht 165.1 cm; Wt 71.6 kg
[~2023-11-05 10:50] MED LIST changes: +TRAMADOL HCL50 MG PO
[2023-11-05] MEDS ORDERED: METHYLPREDNISOLO4 M1 PO (12:08)
[2023-11-05 12:15] VITALS: BP 133/86
== END 2023-11-05 12:12 | disposition home or self-care (01) ==
LOC: ED 10:50
DX: R20.2 Paresthesia of skin (principal); J43.9 Emphysema, unspecified; F32.A Depression, unspecified; F41.9 Anxiety disorder, unspecified; F17.200 Nicotine dependence, unspecified, uncomplicated; Z79.51 Long term (current) use of inhaled steroids; Z79.899 Other long term (current) drug therapy
CPT/HCPCS: 99283

== ENCOUNTER 2024-07-10 18:06 | Emergency (ER) | payer OTHER, MEDICARE ==
[~2024-07-10] VITALS: Ht 165.1 cm; Wt 72.7 kg
[~2024-07-10 18:06] MED LIST changes: +DULOXETINE HCL60 MG PO; +METHYLPREDNISOLO4 M1 PO; +PHENAZOPYRIDIN100 MG PO
[2024-07-10] MEDS ORDERED: IBUPROFEN 600 MG TAB PO ONE (18:30)
[2024-07-10] MEDS ORDERED: CYCLOBENZAPRINE HCL 10 MG HOME.PACK PO ONE (19:15)
[2024-07-10] MEDS ORDERED: methylPREDNISolone 4 MG HOME.PACK PO ONE (19:15)
[2024-07-10] MEDS ORDERED: CYCLOBENZAPRINE10 MG PO (19:17)
[2024-07-10 20:03] VITALS: BP 127/66
== END 2024-07-10 20:03 | disposition home or self-care (01) ==
LOC: ED 18:06
DX: S39.012A Strain of muscle, fascia and tendon of lower back, initial encounter (principal); W18.09XA Striking against other object with subsequent fall, initial encounter; J43.9 Emphysema, unspecified; F17.200 Nicotine dependence, unspecified, uncomplicated; Z79.51 Long term (current) use of inhaled steroids; Z79.1 Long term (current) use of non-steroidal anti-inflammatories (NSAID); Z79.899 Other long term (current) drug therapy
CPT/HCPCS: 72100; 99283; A9270

== ENCOUNTER 2024-10-11 11:41 | Emergency (ER) | payer MEDICARE, OTHER ==
[~2024-10-11] VITALS: Ht 165.1 cm; Wt 73.0 kg
[~2024-10-11 11:41] MED LIST changes: +CYCLOBENZAPRINE10 MG PO
[2024-10-11 11:58] LABS: BASOPHILS 0.7 % (0-2); EOSINOPHILS 1.3 % (0-6); HEMATOCRIT 42.3 % (35.0-50.0); LYMPHOCYTES 22.2 % (24-44); MCH 30.8 (27-36); MCV 93.5 fl (81-99); MONOCYTES 5.2 % (0-12); NEUTROPHILS 70.6 % (39-80); PLATELET COUNT 436 K/uL (140-440); RBC 4.53 M/ul (4.3-5.7); RDW 15.3 (10.5-15.0)
[2024-10-11] MEDS ORDERED: DULOXETINE HCL30 MG PO (12:02)
[2024-10-11] MEDS ORDERED: ALBUTEROL/IPRATROPIUM 3 ML NEB INH ONE (12:15)
[2024-10-11 12:16] LABS: ALBUMIN 4.1 g/dL (3.4-5.0); ALBUMIN/GLOBULIN RATIO 1.21 (1.1-2.4); ALKALINE PHOSPHATASE 60 U/L (46-116); ALT (SGPT) 21 U/L (14-59); ANION GAP 14.2 (7-21); AST (SGOT) 15 U/L (15-37); BILIRUBIN, TOTAL 0.6 ng/dL (0.2-1.0); BUN/CREATININE RATIO 9.47 (6.0-28.6); CALCIUM 9.4 mg/dL (8.5-10.1); CARBON DIOXIDE 27 mmol/L (21-32); CHLORIDE 106 mmol/L (98-107); CREATININE, SERUM 0.95 mg/dL (0.55-1.02); GLOMERULAR FILTRATION RATE,EST 67 mL/min (>60); MAGNESIUM 1.9 mg/dL (1.8-2.4); POTASSIUM 4.2 mmol/L (3.5-5.1); PROTEIN, TOTAL 7.5 g/dL (6.4-8.2); UREA NITROGEN 9 mg/dL (7-18)
[2024-10-11] MEDS ORDERED: PREDNISONE20 MG PO (13:12)
[2024-10-11] MEDS ORDERED: ZITHROMAX250 MG PO (13:12)
[2024-10-11] MEDS ORDERED: AZITHROMYCIN 250 MG TAB PO ONE (13:15)
[2024-10-11] MEDS ORDERED: methylPREDNISolone SOD SUCC 125 MG/2 ML VIAL IV ONE (13:15)
[2024-10-11 13:32] VITALS: BP 140/85
--- NOTE | 2024-10-11 20:52 | EKG ---
[facility] [address] [place] [address] Signed Normal sinus rhythm Normal ECG When compared with ECG of 27-APR-2024 17:37, No significant change was found Confirmed by Enzo Whitley MD ([id number]) on 10/11/2024 8:52:30 PM Electronically Signed By: ENZO WHITLEY DO 10/11/242051 PATIENT NAME: JASONJENA BAHENA Electrocardiogram DATE OF : 62 PHYSICIAN: ENZO WHITLEY DO REPORT #: [id number] REPORT IS CONFIDENTIAL AND NOT TO BE RELEASED WITHOUT AUTHORIZATION
== END 2024-10-11 13:38 | disposition home or self-care (01) ==
LOC: ED 11:41
PROVIDERS: Emergency Medicine
DX: J44.1 Chronic obstructive pulmonary disease with (acute) exacerbation (principal); R55 Syncope and collapse; F17.200 Nicotine dependence, unspecified, uncomplicated; Z79.899 Other long term (current) drug therapy
CPT/HCPCS: 36415; 71045; 80053; 83735; 84484; 85025; 93005; 93010; 94640; 96374; 99285-25; J2919

== ENCOUNTER 2024-10-17 15:35 | Emergency (ER) | payer MEDICARE, OTHER ==
[~2024-10-17] VITALS: Ht 165.1 cm; Wt 69.2 kg
[~2024-10-17 15:35] MED LIST changes: +DULOXETINE HCL30 MG PO; +ZITHROMAX250 MG PO
--- OUTSIDE RECORDS SUMMARY | 2024-10-17 15:42 | XMS ---
PreManage Notification: JENA GOMEZ Security Wine Cellar Worker Events No recent Security Events currently on file CRITERIA MET - [facility] - 2 Visits in 30 Days CARE PROVIDERS JACKIE HAWKINS Physician Edger Machine Setter 06/21/2021-Current PHONE: Unknown Ramila has no Care Guidelines for this patient. Black VISIT COUNT (12 MO.) 6 [facility] TOTAL 6 NOTE: Visits indicate total known visits. ED/C VISIT TRACKING (12 MO.) 10/17/2024 15:35 [facility] [place] TYPE[place] Emergency COMPLAINT: - CHEST RATTLE 10/11/2024 11:42 [facility] [place] TYPE: Emergency COMPLAINT: - FALL DIAGNOSES: - Chronic obstructive pulmonary disease with (acute) exacerbation - Dizziness and giddiness - Emphysema, unspecified - Nicotine dependence, unspecified, uncomplicated - Other intermodal truck driver (current) drug therapy - Syncope and collapse 07/10/2024 18:06 [facility] [place] TYPE: Emergency COMPLAINT: - BACK PAIN DIAGNOSES: - Emphysema, unspecified - retirement (current) use of inhaled steroids - retirement (current) use of non-steroidal anti-inflammatories (NSAID) - Low back pain, unspecified - Nicotine dependence, unspecified, uncomplicated - Other intermodal truck driver (current) drug therapy - Strain of muscle, fascia and tendon of lower back, initial encounter - Striking against other object with subsequent fall, initial encounter 04/27/2024 16:22 [facility] [place] TYPE: Emergency COMPLAINT: - SOB, CHEST DIAGNOSES: - Chest pain, unspecified - Chronic obstructive pulmonary disease, unspecified - Emphysema, unspecified - Nicotine dependence, unspecified, uncomplicated - Other intermodal truck driver (current) drug therapy 01/25/2024 18:49 [facility] [place] TYPE: Emergency COMPLAINT: - SOB DIAGNOSES: - Anxiety disorder, unspecified - Chronic obstructive pulmonary disease with (acute) exacerbation - Cough, unspecified - Depression, unspecified - Elevated white blood cell count, unspecified - parts counterman (current) use of inhaled steroids - parts counterman (current) use of systemic steroids - Nicotine dependence, unspecified, uncomplicated - Other correction (current) drug therapy 11/05/2023 10:51 [facility] [place] TYPE: Emergency COMPLAINT: - R ARM NUMBNESS, COLD, NO APPETITE, DIZZY DIAGNOSES: - Anesthesia of skin - Anxiety disorder, unspecified - Depression, unspecified - Emphysema, unspecified - parts counterman (current) use of inhaled steroids - Nicotine dependence, unspecified, uncomplicated - Other intermodal truck driver (current) drug therapy - Paresthesia of skin INPATIENT VISIT TRACKING (12 MO.) No inpatient visits to display in this time frame [id number]
[2024-10-17] MEDS ORDERED: ALBUTEROL/IPRATROPIUM 3 ML NEB INH PRN (15:45)
[2024-10-17] MEDS ORDERED: methylPREDNISolone SOD SUCC 125 MG/2 ML VIAL IV ONE (16:00)
[2024-10-17 16:10] LABS: BASOPHILS 0.4 % (0-2); EOSINOPHILS 0.7 % (0-6); HEMATOCRIT 41.6 % (35.0-50.0); HEMOGLOBIN 13.9 g/dL (12.0-18.0); LYMPHOCYTES 25.7 % (24-44); MCHC 33.4 g/dl (30-36); MCV 92.9 fl (81-99); MONOCYTES 5.9 % (0-12); NEUTROPHILS 67.3 % (39-80); PLATELET COUNT 468 K/uL (140-440); RBC 4.48 M/ul (4.3-5.7); RDW 15.3 (10.5-15.0)
[2024-10-17 16:37] LABS: ALBUMIN 3.8 g/dL (3.4-5.0); ALBUMIN/GLOBULIN RATIO 1.06 (1.1-2.4); ANION GAP 12.8 (7-21); BILIRUBIN, TOTAL 0.7 ng/dL (0.2-1.0); BUN/CREATININE RATIO 13.67 (6.0-28.6); CALCIUM 9.3 mg/dL (8.5-10.1); CREATININE, SERUM 1.17 mg/dL (0.55-1.02); MAGNESIUM 2.1 mg/dL (1.8-2.4); POTASSIUM 3.8 mmol/L (3.5-5.1); PROTEIN, TOTAL 7.4 g/dL (6.4-8.2)
[2024-10-17 16:51] LABS: INFLUENZA B NAA NEGATIVE (NEGATIVE); RESPIRATORY SYNCYTIAL VIR NAA NEGATIVE (NEGATIVE)
[2024-10-17] MEDS ORDERED: PREDNISONE20 MG PO (19:01)
[2024-10-17 19:17] VITALS: BP 140/75
--- NOTE | 2024-10-18 21:55 | EKG ---
[facility] [address] [place] [address] Signed Normal sinus rhythm Normal ECG When compared with ECG of 11-OCT-2024 11:55, No significant change was found Confirmed by Shantelle Palacios MD () on 10/18/2024 9:55:05 PM Electronically Signed By: SHANTELLE PALACIOS MD 10/18/24 2155 PATIENT NAME: ELPIDIO GOMEZHADLEY BAHENA Electrocardiogram DATE OF : 62 PHYSICIAN: SHANTELLE PALACIOS MD REPORT #: [id number] REPORT IS CONFIDENTIAL AND NOT TO BE RELEASED WITHOUT AUTHORIZATION
== END 2024-10-17 19:19 | disposition home or self-care (01) ==
LOC: ED 15:35
PROVIDERS: Emergency Medicine
DX: J44.1 Chronic obstructive pulmonary disease with (acute) exacerbation (principal); F17.200 Nicotine dependence, unspecified, uncomplicated; Z79.52 Long term (current) use of systemic steroids; Z79.51 Long term (current) use of inhaled steroids; Z79.1 Long term (current) use of non-steroidal anti-inflammatories (NSAID); Z79.899 Other long term (current) drug therapy
CPT/HCPCS: 36415; 71045; 80053; 83735; 83880; 84484; 85025; 87502; 93005; 93010; 94640; 96374; 99285-25; J2919; U0002

== ENCOUNTER 2024-12-17 14:31 | Inpatient (IN) | payer OTHER, MEDICARE ==
[~2024-12-17] VITALS: Ht 165.1 cm; Wt 70.3 kg
[2024-12-17 17:01] LABS: BILIRUBIN, URINE NEGATIVE (negative); BLOOD/HGB, URINE NEGATIVE (Negative); KETONE, URINE TRACE (Negative); LEUK ESTERASE, URINE SMALL (negative); NITRITE, URINE NEGATIVE (negative)
[2024-12-17 17:08] LABS: EPITHELIAL CELLS, URINE SQUAMOUS 2+ /lpf (0-1+); RED BLOOD CELLS, URINE 0-1 /hpf (0-5)
[2024-12-17 17:09] LABS: BACTERIA, URINE RARE /hpf (negative); CASTS, URINE NONE SEEN \\lpf; COLLECTION TYPE, URINE CLEAN CATCH; CRYSTALS, URINE NONE SEEN (0-1+); REFLEX CULTURE, URINE No (No)
[2024-12-17 17:17] LABS: BASOPHILS 0.2 % (0-2); EOSINOPHILS 3.6 % (0-6); HEMATOCRIT 38.4 % (35.0-50.0); HEMOGLOBIN 12.5 g/dL (12.0-18.0); LYMPHOCYTES 27.6 % (24-44); MCH 29.8 (27-36); MCHC 32.4 g/dl (30-36); MCV 91.8 fl (81-99); NEUTROPHILS 62.6 % (39-80); PLATELET COUNT 587 K/uL (140-440); RBC 4.19 M/ul (4.3-5.7); RDW 14.8 (10.5-15.0)
[2024-12-17 17:32] LABS: ALBUMIN 3.2 g/dL (3.4-5.0); ALBUMIN/GLOBULIN RATIO 0.74 (1.1-2.4); ANION GAP 12.7 (7-21); BILIRUBIN, TOTAL 0.5 ng/dL (0.2-1.0); BUN/CREATININE RATIO 8.33 (6.0-28.6); CALCIUM 9.2 mg/dL (8.5-10.1); CREATININE, SERUM 0.84 mg/dL (0.55-1.02); POTASSIUM 3.7 mmol/L (3.5-5.1); PROTEIN, TOTAL 7.5 g/dL (6.4-8.2)
[2024-12-17] MEDS ORDERED: AZITHROMYCIN 250 MG TAB PO ONE (18:30)
[2024-12-17] MEDS ORDERED: CEFTRIAXONE/SODIUM CHLORIDE 1 GM/100 ML PIGGYBACK IV ONE (18:30)
[2024-12-17] MEDS ORDERED: ALBUTEROL/IPRATROPIUM 3 ML NEB INH ONE (18:30)
[2024-12-17] MEDS ORDERED: ondansetron HCL 4 MG/2 ML VIAL IV PRN (19:15)
[2024-12-17] MEDS ORDERED: SODIUM CHLORIDE 0.9% 1,000 ML IV SCH (19:15)
[2024-12-17] MEDS ORDERED: ACETAMINOPHEN 325 MG TAB PO PRN (19:15)
[2024-12-17 20:15] VITALS: BP 153/74
--- NOTE | 2024-12-17 20:34 | NUR ---
ON ROOM AIR, ALERT AND ORIENTED,, RECEIVED 1-3LO2 AT HOME, HX COPD. LUNGS COARSE BILAT. MOIST NON PRODUCTIVE COUGH AT THIS TIME. ABD DISTENDED, FIRM PARAS. STATES PASSING GAS BUT NO BM X2 WEEKS. IV RFA, IVF INFUSING. NO C/O PAIN.
[2024-12-17] MEDS ORDERED: ALBUTEROL SULFATE 0.083% 3 ML VIAL INH PRN (20:45)
[2024-12-17] MEDS ORDERED: NICOTINE 21 MG/24 HR 1 EA TDSY TD SCH (21:00)
[2024-12-17] MEDS ORDERED: bisacodyL 10 MG SUPP PR SCH (21:00)
[2024-12-17] MEDS ORDERED: POLYETHYLENE GLYCOL 3350 1 PACKET PO SCH (21:00)
[2024-12-17] MEDS ORDERED: SENNOSIDES/DOCUSATE 1 EA TAB PO SCH (21:00)
--- NOTE | 2024-12-17 21:06 | NUR ---
PT NEEDED TO USE BATHROOM. JITNEY DRIVER SBA TO BATHROOM. PT VOIDED AND ASSISTED BACK TO BED. OUTPUT MEASURED AND PT STATES NO FURTHER NEEDS AT THIS TIME. CALL LIGHT WITHIN REACH.
--- NOTE | 2024-12-17 21:34 | NUR ---
PO BOWEL PREP MEDS AND DULC SUPP WI GIVEN, MED TEACHING DONE. LABIA RED WITH CLOUDY MUCOID LIKE DISCHARGE, OPEN L UPPER LABIA AREA. RED PERIAAREA AND OPEN AREA TOP BY COCCYX ARE, BARRIER CREAM AND THICK PASTE APPLIED. STATES THAT SOIMETIME HER VAGINAL AREA ITCHES AND SHE SCRATCHES IT OFTEN. DENIES PAIN T SITE. PROCEDURES EXPLAINED, STATED UNDERSTANDING,
--- NOTE | 2024-12-17 22:30 | NUR ---
CALL LIGHT ANSWERED. PT STATED SHE WAS DONE ON BSC. PT HAD LARGE BM. BSC CLEANED AND PT BACK IN BED. PT STATES NO FURTHER NEEDS AT THIS TIME. CALL LIGHT WITHIN REACH.
[2024-12-17 22:52] VITALS: BP 153/74
[2024-12-18] VITALS (9 sets, daily range): BP systolic 110–132; BP diastolic 60–73
--- NOTE | 2024-12-18 00:21 | NUR ---
Resting, eyes closed, cpox at bedside, placed on O2 #LNC earlier as she desated to 86%. sats 94% on 3L. Had a bm earlier.
--- NOTE | 2024-12-18 01:30 | NUR ---
Awake, up to BSC, had another small bm. back to bed SBA, IVF infusing w/o problems, no c/o pain.
--- NOTE | 2024-12-18 04:12 | NUR ---
Resting, eyes closed, IVF infusing w/o problems. no c/o abd pain
--- NOTE | 2024-12-18 04:57 | NUR ---
Pt awakens easily, no c/o pain. IVF infusing w/o problems. O2 3LNC, CPOX at bedside, sats 92%. O2 chornic/PRN at home. Lungs with fine exp crackles. Up to BSC, voided, no sob noted on return, tolerated very well. applied barrier cream to jenni area by self. Has had 2 hard/formed BM's this shfit. abd sofeter and less distended than on admission. voiding QS tolerating liquids well. no c/o pain or n/v
[2024-12-18 05:39] LABS: BASOPHILS 0.6 % (0-2); EOSINOPHILS 4.1 % (0-6); HEMATOCRIT 36.5 % (35.0-50.0); HEMOGLOBIN 12.2 g/dL (12.0-18.0); LYMPHOCYTES 24.2 % (24-44); MCH 30.4 (27-36); MCHC 33.3 g/dl (30-36); MCV 91.1 fl (81-99); MONOCYTES 7.3 % (0-12); NEUTROPHILS 63.8 % (39-80); PLATELET COUNT 594 K/uL (140-440); RBC 4.01 M/ul (4.3-5.7); RDW 15.4 (10.5-15.0)
[2024-12-18 05:55] LABS: ALBUMIN 2.7 g/dL (3.4-5.0); ALBUMIN/GLOBULIN RATIO 0.71 (1.1-2.4); ANION GAP 10.1 (7-21); BILIRUBIN, TOTAL 0.5 ng/dL (0.2-1.0); BUN/CREATININE RATIO 7.46 (6.0-28.6); CALCIUM 8.6 mg/dL (8.5-10.1); CREATININE, SERUM 0.67 mg/dL (0.55-1.02); MAGNESIUM 2.2 mg/dL (1.8-2.4); POTASSIUM 4.1 mmol/L (3.5-5.1); PROTEIN, TOTAL 6.5 g/dL (6.4-8.2)
--- NOTE | 2024-12-18 07:15 | NUR ---
ROUNDING REPORT, PATIENT RESTING IN BED ON CPOX, 94% OXYGEN SATURATION.
[2024-12-18] MEDS ORDERED: ALBUTEROL/IPRATROPIUM 3 ML NEB INH SCH (08:00)
[2024-12-18] MEDS ORDERED: BUDESONIDE 0.5 MG/2 ML VIAL INH SCH (08:00)
[2024-12-18] MEDS ORDERED: ENOXAPARIN SODIUM 40 MG/0.4 ML SYR SUB-Q SCH (09:00)
--- NOTE | 2024-12-18 09:19 | NUR ---
PATIENT RESTING IN BED ALERT AND ORIENTED, ASSESSMENT COMPLETE, NO NEW CONCERNS, SHE VERBALIZED, "I AM GOING TO GET TO GO HOME TODAY?" THIS RN SAID, "PROBABLY ANOTHER NIGHT, BUT WE WILL SEE HOW THE DAY GOES."
--- NOTE | 2024-12-18 09:44 | NUR ---
Patient finished their breakfeast and tray was put away, no request at this time for patient, I got the patient more water
--- NOTE | 2024-12-18 10:02 | NUR ---
PATIENT SITTING AT SIDE OF BED, ALERT AND ORIENTED, SHE REPORTS SHE IS FEELING LIKE SHE MIGHT NEED TO HAVE A BM.
[2024-12-18] MEDS ORDERED: NAPROXEN500 MG PO (10:21)
[2024-12-18] MEDS ORDERED: FAMOTIDINE20 MG PO (10:21)
[2024-12-18] MEDS ORDERED: TOLTERODINE TART4 MG PO (10:25)
[2024-12-18] MEDS ORDERED: VENTOLIN HFA18 GM INH (10:26)
--- NOTE | 2024-12-18 11:39 | NUR ---
PATIENT BACK TO BED FROM COMMODE, HAD LARGE FORMED STOOL. IN REGARDS TO HER ABD DISTENTION, "NOT QUITE NORMAL BUT GETTING CLOSER."
[2024-12-18] MEDS ORDERED: PHARMACY RENAL DOSE ADJUSTMENT 1 DOSE MISC PO SCH (12:00)
--- NOTE | 2024-12-18 12:52 | NUR ---
RECEIVED REPORT FROM DAY RN Joseph OLSEN. PT SITTING UP IN BED, LUNCH TRAY JUST ARRIVED. PT DENIES PAIN, SOB. CPOX IN PLACE O2 93% WITH 3L, TITRATED O2 DOWN TO 2L PT STATES SHE ONLY USES OXYGEN AT NIGHT PER BASELINE. IV FLUIDS INFUSING, CHANGED OVER NEW BAG, IV CLEARED. PT PROVIDED ICE WATER. DENIES ANY NEEDS AT THIS TIME, ALLOWED TO EAT LUNCH WHILE HOT. CALL LIGHTW TIHIN REACH, LIGHTS TURNED DOWN SLIGHTLY. ALL PT CARE NEEDS MET AT THIS TIME.
--- NOTE | 2024-12-18 13:59 | NUR ---
MANAGER RFID REPORTS BARKING/DRY/HARSH COUGH, PER MD, ORDER FOR TESSALON PEARLS ORDERED FOR COUGH. AWAITING PHARMACY REVIEW. PT STATES SPUTUM IS YELLOW IN COLOR, ACCAPELA PRESENT AT BEDSIDE. CALL LIGHT WITHIN REACH.
[2024-12-18] MEDS ORDERED: BENZONATATE 100 MG CAP PO PRN (14:00)
--- NOTE | 2024-12-18 14:02 | NUR ---
Patient was coughing alot when in the room, she was taking off her nasal canula on and off her nose. Patient has a cpox on to track her O2 stats. No request at this time, nurse has been notified
--- NOTE | 2024-12-18 15:10 | NUR ---
rn assumed care, pt alert and oriented with call light in bed, dry cough noted. iv fluids runing and site wnl. pt with chronic oxygen on.
[2024-12-18] MEDS ORDERED: BUDESONIDE 0.5 MG/2 ML VIAL ONE (20:28)
--- NOTE | 2024-12-18 20:29 | NUR ---
pt commode dumped for lg amt of liq bm. held suppository, po miralx and senna given, pt used rt trumpet. enc. cough. pt on 3l nc and bedside cpox. sats wnl. lungs with rhonci throughout. bs +, bed alarm on and call light in reach.
--- NOTE | 2024-12-18 20:38 | NUR ---
HUMIDIFICATION ADDED TO Adam'S nc TO HELP MOISTEN AIRWAYS. DOUBLED PULMICORT DOSE DUE TO BARKY COUGH AND INFLAMMED AIRWAYS.
[2024-12-18] MEDS ORDERED: CEFTRIAXONE/SODIUM CHLORIDE 2 GM/100 ML PIGGYBACK IV SCH (21:00)
[2024-12-18] MEDS ORDERED: AZITHROMYCIN 500 MG in DEXTROSE 5% 250 ML IV SCH (21:00)
[2024-12-18] MEDS ORDERED: FLUCONAZOLE 150 MG TAB PO ONE (23:00)
--- NOTE | 2024-12-19 03:21 | NUR ---
RECEIVED REPORT FROM CRISTINA SHARP. PATIENT IS RESTING IN BED WITH EYES CLOSED, RR 16. CALL LIGHT IN [facility].
[2024-12-19 04:36] VITALS: BP 126/68
[2024-12-19 04:51] VITALS: BP 126/68
--- NOTE | 2024-12-19 04:52 | NUR ---
PATIENT UP TO BSC IND. PATIENT ABLE TO VOID. PATIENT IS BACK IN BED RESTING. PATIENT REMAINS ON 3L VIA NC. PATIENTS IV INFUSING PER ORDER. PATIENT DENIES ANY PAIN OR SOB. PATIENTS PUREWICK IN PLACE. PATIENT DENIES ANY FURTHER NEEDS. CALL LIGHT IN REACH. IV INFUSING PER ORDER.
[2024-12-19 05:36] LABS: BASOPHILS 0.5 % (0-2); EOSINOPHILS 2.1 % (0-6); HEMATOCRIT 35.4 % (35.0-50.0); HEMOGLOBIN 11.7 g/dL (12.0-18.0); LYMPHOCYTES 19.4 % (24-44); MCHC 32.9 g/dl (30-36); MONOCYTES 6.3 % (0-12); NEUTROPHILS 71.7 % (39-80); PLATELET COUNT 586 K/uL (140-440); RBC 3.89 M/ul (4.3-5.7); RDW 15.4 (10.5-15.0)
[2024-12-19 06:01] LABS: ALBUMIN 2.7 g/dL (3.4-5.0); ALBUMIN/GLOBULIN RATIO 0.71 (1.1-2.4); ANION GAP 7.5 (7-21); BILIRUBIN, TOTAL 0.4 ng/dL (0.2-1.0); BUN/CREATININE RATIO 8.19 (6.0-28.6); CALCIUM 8.6 mg/dL (8.5-10.1); CREATININE, SERUM 0.61 mg/dL (0.55-1.02); POTASSIUM 3.5 mmol/L (3.5-5.1); PROTEIN, TOTAL 6.5 g/dL (6.4-8.2)
--- NOTE | 2024-12-19 07:40 | NUR ---
RECEIVED REPORT FROM ADDY RN Joseph MONTOYA. PT RESTING IN BED, AWAKE WHEN WE ARRIVED. PT DENIES ANY NEEDS AT THIS TIME, REALLY REQUESTING TO GO HOME TODAY. PT STATES SHE HAS A CONCENTRATOR/O2 TANKS AND FEELS SHE IS READY TO GO. INFORMED WE WILL WAIT FOR MD TO ROUND AND RT TO DO ROUNDS WELL. PT IS ALLOWED TO BE INDEPENDENT TO BSC. CALL LIGHT WITHIN REACH, SHE WILL CALL IF SHE HAS ANY CONCERSN/NEEDS.
[2024-12-19] MEDS ORDERED: BUDESONIDE 0.5 MG/2 ML VIAL INH SCH ×2 (08:00)
--- NOTE | 2024-12-19 08:35 | NUR ---
Board has been updated and patieent ADL's have been completed. Patient ate breakfeast in the chair
[2024-12-19 09:35] VITALS: BP 111/47
[2024-12-19 09:37] VITALS: BP 118/57
--- NOTE | 2024-12-19 10:06 | NUR ---
MED REC COMPLETE
--- NOTE | 2024-12-19 10:27 | NUR ---
PT WAS SITTING UP IN CHAIR, PT INDEPENDENT BACK TO BED. MEDS GIVEN, STOOLS MEDS GIVEN, PT DID WANT SUPPOSITORY AGAIN TODAY. GIVEN WHILE PATIENT IN BED. BSC PLACED NEXT TO BED, PT WAS ABLE TO AMBULATE TO THE BED, MANAGE THE CORDS ALL ON HER OWN SAFELY. LIGHT TURNED DOWN AND PT RESTING IN BED AT THIS ITME. CALL LIGHT WITHIN REACH. ALL PT CARE NEEDS MET AT THIS TIME.
--- NOTE | 2024-12-19 11:15 | NUR ---
A longer Oxygen cord has been placed in patient room d/t not being able to go to the bathroom with the short tubing. Patient is still assisting that the cammode stays close to her bed, but she is capble of walking to the bathroom. I asked patient if she has a bathroom this close to her bed at home. Patient replied NO. She agreed it was best for her to walk in the bathroom. Call light has been placed within reach, no request from patient at this time
[2024-12-19] MEDS ORDERED: CEFDINIR300 MG PO (11:28)
[2024-12-19] MEDS ORDERED: STIMULANT LAXA1 EACH PO (11:29)
[2024-12-19] MEDS ORDERED: HEALTHYLAX17 GM PO (11:29)
[2024-12-19] MEDS ORDERED: BENZONATATE100 MG PO (11:29)
--- NOTE | 2024-12-19 12:06 | NUR ---
PER , ROSELYN TO GIVE IV ABX EARLY, FOR PATIENT DISCHARGE. PHARMACY DELIVERED TO FLOOR. PT RESTING IN BED AT THIS TIME, ANTICIPATE DISCHARGE BY 1400.
[2024-12-19 12:33] VITALS: BP 118/57
[2024-12-19 12:59] VITALS: BP 140/64
--- NOTE | 2024-12-19 15:28 | NUR ---
PATIENT GIVEN WHEELCHAIR RIDE TO FRONT DOOR.
== END 2024-12-19 15:20 | disposition home or self-care (01) | DRG 193 ==
LOC: ED 14:31 → MS 19:19
PROVIDERS: Emergency Medicine; ADMIT Family Medicine; ATTEND Family Medicine
DX: J18.9 Pneumonia, unspecified organism (principal); J96.21 Acute and chronic respiratory failure with hypoxia; K59.00 Constipation, unspecified; J44.9 Chronic obstructive pulmonary disease, unspecified; F17.210 Nicotine dependence, cigarettes, uncomplicated; Z99.81 Dependence on supplemental oxygen; Z98.890 Other specified postprocedural states; Z79.899 Other long term (current) drug therapy; Z79.51 Long term (current) use of inhaled steroids
CPT/HCPCS: 36415; 71045; 74018; 74177; 80053; 81001; 83690; 83735; 84100; 85025; 94640; 94667; 94668; 94762; 94799; 99407; A9270; J0456; J0696; J1650; J7030; J7060

== ENCOUNTER 2025-01-21 02:20 | Emergency (ER) | payer OTHER, MEDICARE ==
[~2025-01-21] VITALS: Ht 165.1 cm; Wt 70.0 kg
[~2025-01-21 02:20] MED LIST changes: +BENZONATATE100 MG PO; +CEFDINIR300 MG PO; +FAMOTIDINE20 MG PO; +HEALTHYLAX17 GM PO; +NAPROXEN500 MG PO; +STIMULANT LAXA1 EACH PO; +TOLTERODINE TART4 MG PO
[2025-01-21] MEDS ORDERED: CLONAZEPAM1 MG PO (02:28)
[2025-01-21] MEDS ORDERED: SIMVASTATIN40 MG PO (02:28)
[2025-01-21] MEDS ORDERED: DOXEPIN HCL75 MG PO (02:28)
[2025-01-21] MEDS ORDERED: TOLTERODINE TART4 MG PO (02:28)
[2025-01-21] MEDS ORDERED: OXYBUTYNIN CHLO15 MG PO (02:28)
[2025-01-21] MEDS ORDERED: clonazePAM 0.5 MG TAB PO ONE (02:30)
[2025-01-21 02:44] LABS: BASOPHILS 0.6 % (0-2); EOSINOPHILS 3.1 % (0-6); HEMOGLOBIN 13.2 g/dL (12.0-18.0); LYMPHOCYTES 28.5 % (24-44); MCH 29.6 (27-36); MCHC 33.1 g/dl (30-36); MCV 89.7 fl (81-99); MONOCYTES 7.9 % (0-12); NEUTROPHILS 59.9 % (39-80); PLATELET COUNT 403 K/uL (140-440); RBC 4.47 M/ul (4.3-5.7); RDW 16.1 (10.5-15.0)
[2025-01-21 03:07] LABS: ACETAMINOPHEN 0 ug/mL (10-30); ALBUMIN 3.9 g/dL (3.4-5.0); ALBUMIN/GLOBULIN RATIO 1.22 (1.1-2.4); ALCOHOL, MEDICAL <3 ng/dL (<3); ALKALINE PHOSPHATASE 66 U/L (46-116); ALT (SGPT) 18 U/L (14-59); ANION GAP 11.9 (7-21); AST (SGOT) 14 U/L (15-37); BILIRUBIN, TOTAL 0.3 mg/dL (0.2-1.0); BUN/CREATININE RATIO 9.72 (6.0-28.6); CALCIUM 9.8 mg/dL (8.5-10.1); CARBON DIOXIDE 28 mmol/L (21-32); CHLORIDE 107 mmol/L (98-107); CREATININE, SERUM 0.72 mg/dL (0.55-1.02); GLOMERULAR FILTRATION RATE,EST 94 mL/min (>60); POTASSIUM 3.9 mmol/L (3.5-5.1); PROTEIN, TOTAL 7.1 g/dL (6.4-8.2); SALICYLATE 4.7 mg/dL (2.8-20.0); TSH, 3RD GENERATION 4.621 uIU/mL (0.358-3.740); UREA NITROGEN 7 mg/dL (7-18)
[2025-01-21 03:58] VITALS: BP 148/80
== END 2025-01-21 04:26 | disposition home or self-care (01) ==
LOC: ED 02:20
PROVIDERS: Family Medicine
DX: R45.851 Suicidal ideations (principal); F41.0 Panic disorder [episodic paroxysmal anxiety]; J44.89 Other specified chronic obstructive pulmonary disease; F17.200 Nicotine dependence, unspecified, uncomplicated; Z79.899 Other long term (current) drug therapy
CPT/HCPCS: 36415; 80053; 80307; 84443; 85025; 99285; G0480

== ENCOUNTER 2025-03-03 08:24 | Emergency (ER) | payer MEDICARE, OTHER ==
[~2025-03-03] VITALS: Ht 165.1 cm; Wt 69.9 kg
[2025-03-03 09:18] LABS: BASOPHILS 0.6 % (0-2); EOSINOPHILS 2.4 % (0-6); HEMATOCRIT 41.9 % (35.0-50.0); HEMOGLOBIN 13.9 g/dL (12.0-18.0); LYMPHOCYTES 22.6 % (24-44); MCH 29.2 (27-36); MCHC 33.2 g/dl (30-36); MCV 88.1 fl (81-99); MONOCYTES 7.3 % (0-12); NEUTROPHILS 67.1 % (39-80); PLATELET COUNT 457 K/uL (140-440); RBC 4.76 M/ul (4.3-5.7); RDW 15.3 (10.5-15.0)
[2025-03-03 09:27] LABS: INR 1.03 (0.80-1.30)
[2025-03-03 09:32] LABS: ALBUMIN 3.8 g/dL (3.4-5.0); ALBUMIN/GLOBULIN RATIO 1.12 (1.1-2.4); ANION GAP 12.3 (7-21); BILIRUBIN, TOTAL 0.5 mg/dL (0.2-1.0); CALCIUM 9.7 mg/dL (8.5-10.1); POTASSIUM 4.3 mmol/L (3.5-5.1); PROTEIN, TOTAL 7.2 g/dL (6.4-8.2)
[2025-03-03 09:57] LABS: LACTIC ACID, BLOOD 1.4 mmol/L (0.4-2.0)
[2025-03-03 10:49] LABS: BILIRUBIN, URINE NEGATIVE (negative); BLOOD/HGB, URINE NEGATIVE (Negative); KETONE, URINE NEGATIVE (Negative); LEUK ESTERASE, URINE TRACE (negative); NITRITE, URINE NEGATIVE (negative)
[2025-03-03] MEDS ORDERED: GOLYTELY SOLU4000 ML PO (11:08)
[2025-03-03 11:09] LABS: BACTERIA, URINE NONE SEEN /hpf (negative); CASTS, URINE NONE SEEN \\lpf; COLLECTION TYPE, URINE CLEAN CATCH; CRYSTALS, URINE NONE SEEN (0-1+); EPITHELIAL CELLS, URINE SQUAMOUS 2+ /lpf (0-1+); RED BLOOD CELLS, URINE 0-1 /hpf (0-5); REFLEX CULTURE, URINE No (No)
[2025-03-03 11:15] VITALS: BP 139/95
--- NOTE | 2025-03-03 22:56 | EKG ---
[facility] [address] [place] [address] Signed Normal sinus rhythm Minimal voltage criteria for LVH, may be normal variant ( [place] product ) Possible Inferior infarct , age undetermined Abnormal ECG When compared with ECG of 17-OCT-2024 15:52, Borderline criteria for Inferior infarct are now present Confirmed by Shantelle Palacios MD () on 03/03/2025 10:56:34 PM Electronically Signed By: SHANTELLE PALACIOS MD 03/03/25 2256 PATIENT NAME: JENA GOMEZ Electrocardiogram DATE OF : 62 PHYSICIAN: SHANTELLE PALACIOS MD REPORT #: [id number] REPORT IS CONFIDENTIAL AND NOT TO BE RELEASED WITHOUT AUTHORIZATION
== END 2025-03-03 11:15 | disposition home or self-care (01) ==
LOC: ED 08:24
PROVIDERS: Emergency Medicine
DX: K59.00 Constipation, unspecified (principal); F17.200 Nicotine dependence, unspecified, uncomplicated; J45.909 Unspecified asthma, uncomplicated
CPT/HCPCS: 36415; 71045; 74177; 80053; 81001; 83605; 83690; 85025; 85610; 93005; 93010; 99285-25; Q9967

== ENCOUNTER 2025-04-18 15:00 | Emergency (ER) | payer MEDICARE, OTHER ==
[~2025-04-18] VITALS: Ht 165.1 cm; Wt 69.9 kg
[~2025-04-18 15:00] MED LIST changes: +GOLYTELY SOLU4000 ML PO
--- OUTSIDE RECORDS SUMMARY | 2025-04-18 15:21 | XMS ---
PreManage Notification: JENA GOMEZ Security Vertica Architect Events No recent Security Events currently on file CRITERIA MET - [facility] - 2 Visits in 30 Days CARE PROVIDERS JACKIE HAWKINS Physician Backup Operator 06/21/2021-Current PHONE: Unknown Ramila has no Care Guidelines for this patient. Black VISIT COUNT (12 MO.) [address] [place] [address] TOTAL 9 NOTE: Visits indicate total known visits. ED/UCC VISIT TRACKING (12 MO.) 04/18/2025 15:02 [facility] [place] TYPE: Emergency COMPLAINT: - BLACK STOOLS 04/11/2025 13:01 [facility] [place] TYPE: Emergency DIAGNOSES: - Generalized abdominal pain - Other constipation - SENT BY 03/03/2025 08:25 [facility] [place] TYPE: Emergency COMPLAINT: - CONSTIPATION DIAGNOSES: - Constipation, unspecified - Nicotine dependence, unspecified, uncomplicated - Unspecified asthma, uncomplicated 01/21/2025 02:20 [facility] [place] [facility] [place] TYPE: Emergency COMPLAINT: - SUICIDAL DIAGNOSES: - Nicotine dependence, unspecified, uncomplicated - Other termite exterminator (current) drug therapy - Other specified chronic obstructive pulmonary disease - Panic disorder [episodic paroxysmal anxiety] - Suicidal ideations 12/17/2024 14:31 [facility] [place] [facility] [place] TYPE: Emergency COMPLAINT: - CONSTIPATION 10/17/2024 15:35 [facility] [place] TYPE: Emergency COMPLAINT: - CHEST RATTLE DIAGNOSES: - Chronic obstructive pulmonary disease with (acute) exacerbation - detention (current) use of inhaled steroids - watermelon harvesting supervisor (current) use of non-steroidal anti-inflammatories (NSAID) - detention (current) use of systemic steroids - Nicotine dependence, unspecified, uncomplicated - Other termite exterminator (current) drug therapy - Shortness of breath 10/11/2024 11:42 [facility] [place] TYPE: Emergency COMPLAINT: - FALL DIAGNOSES: - Chronic obstructive pulmonary disease with (acute) exacerbation - Dizziness and giddiness - Emphysema, unspecified - Nicotine dependence, unspecified, uncomplicated - Other termite exterminator (current) drug therapy - Syncope and collapse 07/10/2024 18:06 [facility] TYPE: Emergency COMPLAINT: - BACK PAIN DIAGNOSES: - Emphysema, unspecified - watermelon harvesting supervisor (current) use of inhaled steroids - detention (current) use of non-steroidal anti-inflammatories (NSAID) - Low back pain, unspecified - Nicotine dependence, unspecified, uncomplicated - Other termite exterminator (current) drug therapy - Strain of muscle, fascia and tendon of lower back, initial encounter - Striking against other object with subsequent fall, initial encounter 04/27/2024 16:22 [facility] [place] TYPE: Emergency COMPLAINT: - SOB, CHEST DIAGNOSES: - Chest pain, unspecified - Chronic obstructive pulmonary disease, unspecified - Emphysema, unspecified - Nicotine dependence, unspecified, uncomplicated - Other termite exterminator (current) drug therapy INPATIENT VISIT TRACKING (12 MO.) 12/17/2024 19:19 [facility] TYPE: Medical Surgical COMPLAINT: - CONSTIPATION, PNEUMONIA DIAGNOSES: - Acute and chronic respiratory failure with hypoxia - Acute and chronic respiratory failure with hypoxia - Chronic obstructive pulmonary disease, unspecified - Chronic obstructive pulmonary disease, unspecified - Constipation, unspecified - Constipation, unspecified - Dependence on supplemental oxygen - Dependence on supplemental oxygen - detention (current) use of inhaled steroids - detention (current) use of inhaled steroids - Nicotine dependence, cigarettes, uncomplicated - Nicotine dependence, cigarettes, uncomplicated - Other termite exterminator (current) drug therapy - Other termite exterminator (current) drug therapy - Other specified postprocedural states - Other specified postprocedural states - Pneumonia, unspecified organism [email or web address]
[2025-04-18 16:57] LABS: BASOPHILS 0.7 % (0.1-1.2); EOSINOPHILS 3.4 % (0.7-5.8); HEMATOCRIT 41.4 % (34.1-44.9); HEMOGLOBIN 13.3 g/dL (11.2-15.7); LYMPHOCYTES 33.1 % (19.3-51.7); MCH 28.7 PG (25.6-32.2); MCHC 32.1 g/dL (32.2-35.5); MCV 89.4 fL (79.4-94.8); MONOCYTES 7.5 % (4.7-12.5); NEUTROPHILS 54.9 % (34.0-71.1); PLATELET COUNT 415 K/uL (182-369); RBC 4.63 M/uL (3.93-5.22)
[2025-04-18 17:06] LABS: ALBUMIN 3.3 g/dL (3.4-5.0); ALBUMIN/GLOBULIN RATIO 0.97 (1.1-2.4); ANION GAP 9.8 (7-21); BILIRUBIN, TOTAL 0.3 mg/dL (0.2-1.0); BUN/CREATININE RATIO 4.7 (6.0-28.6); CALCIUM 9.1 mg/dL (8.5-10.1); CREATININE, SERUM 0.85 mg/dL (0.55-1.02); POTASSIUM 3.8 mmol/L (3.5-5.1); PROTEIN, TOTAL 6.7 g/dL (6.4-8.2)
[2025-04-18 17:32] VITALS: BP 127/78
[2025-04-18] MEDS ORDERED: LEVOFLOXACIN750 MG PO (17:32)
== END 2025-04-18 17:31 | disposition home or self-care (01) ==
LOC: ED 15:00
PROVIDERS: Emergency Medicine
DX: R19.5 Other fecal abnormalities (principal); J44.89 Other specified chronic obstructive pulmonary disease; G47.00 Insomnia, unspecified; F17.200 Nicotine dependence, unspecified, uncomplicated; Z79.899 Other long term (current) drug therapy
CPT/HCPCS: 36415; 80053; 85025; 99283

== ENCOUNTER 2025-10-04 14:04 | Emergency (ER) | payer MEDICARE, OTHER ==
[~2025-10-04] VITALS: Ht 165.1 cm; Wt 70.1 kg
[~2025-10-04 14:04] MED LIST changes: +ADVAIR 250-501 EACH INH; +ARFORMOTER15 MCG/2 M INH; +DULCOLAX10 MG PR; +LEVOFLOXACIN750 MG PO
--- OUTSIDE RECORDS SUMMARY | 2025-10-04 14:05 | XMS ---
PreManage Notification: JENA GOMEZ Security Dough Mixer Events No recent Security Events currently on file CRITERIA MET - [employer] CARE PROVIDERS JACKIE HAWKINS Physician Ferruler 06/21/2021-Current PHONE: Unknown Ramila has no Care Guidelines for this patient. EBarbara VISIT COUNT (12 MO.) 8 [facility] Ortega [facility] TOTAL 9 NOTE: Visits indicate total known visits. ED/UCC VISIT TRACKING (12 MO.) 10/04/2025 14:04 [facility] TYPE: Emergency COMPLAINT: - DIFFICULTY BREATHING 06/20/2025 13:26 [facility] OR TYPE: Emergency COMPLAINT: - ABDOMINAL PAIN 04/18/2025 15:02 [facility] TYPE: Emergency COMPLAINT: - BLACK STOOLS DIAGNOSES: - Insomnia, unspecified - Nicotine dependence, unspecified, uncomplicated - Other fecal abnormalities - Other terminal makeup operator (current) drug therapy - Other specified chronic obstructive pulmonary disease 04/11/2025 13:01 [facility] OR TYPE: Emergency DIAGNOSES: - Generalized abdominal pain - Other constipation - SENT BY 03/03/2025 08:25 [facility] OR TYPE: Emergency COMPLAINT: - CONSTIPATION DIAGNOSES: - Constipation, unspecified - Nicotine dependence, unspecified, uncomplicated - Unspecified asthma, uncomplicated 01/21/2025 02:20 [facility] TYPE: Emergency COMPLAINT: - SUICIDAL DIAGNOSES: - Nicotine dependence, unspecified, uncomplicated - Other jail (current) drug therapy - Other specified chronic obstructive pulmonary disease - Panic disorder [episodic paroxysmal anxiety] - Suicidal ideations 12/17/2024 14:31 [facility] OR TYPE: Emergency COMPLAINT: - CONSTIPATION 10/17/2024 15:35 [facility] OR TYPE: Emergency COMPLAINT: - CHEST RATTLE DIAGNOSES: - Chronic obstructive pulmonary disease with (acute) exacerbation - manager long term care (current) use of inhaled steroids - manager long term care (current) use of non-steroidal anti-inflammatories (NSAID) - shelter (current) use of systemic steroids - Nicotine dependence, unspecified, uncomplicated - Other terminal makeup operator (current) drug therapy - Shortness of breath 10/11/2024 11:42 [facility] TYPE: Emergency COMPLAINT: - FALL DIAGNOSES: - Chronic obstructive pulmonary disease with (acute) exacerbation - Dizziness and giddiness - Emphysema, unspecified - Nicotine dependence, unspecified, uncomplicated - Other jail (current) drug therapy - Syncope and collapse INPATIENT VISIT TRACKING (12 MO.) 06/20/2025 18:02 [facility] OR TYPE: Medical Surgical COMPLAINT: - CONSTIPATION, UTI DIAGNOSES: - Anxiety disorder, unspecified - Chronic obstructive pulmonary disease, unspecified - Constipation, unspecified - Cyst of kidney, acquired - Cyst of kidney, acquired - Dependence on supplemental oxygen - Depression, unspecified - Insomnia, unspecified - Liver disease, unspecified - Liver disease, unspecified - Nicotine dependence, cigarettes, uncomplicated - Other constipation - Other constipation - Other intestinal obstruction unspecified as to partial versus complete obstruction - Other intestinal obstruction unspecified as to partial versus complete obstruction - Other specified diseases of liver - Other specified postprocedural states - Personal history of pneumonia (recurrent) - Unspecified intestinal obstruction, unspecified as to partial versus complete obstruction - Urinary tract infection, site not specified - Urinary tract infection, site not specified 12/17/2024 19:19 [facility] OR TYPE: Medical Surgical COMPLAINT: - CONSTIPATION, PNEUMONIA DIAGNOSES: - Acute and chronic respiratory failure with hypoxia - Acute and chronic respiratory failure with hypoxia - Chronic obstructive pulmonary disease, unspecified - Chronic obstructive pulmonary disease, unspecified - Constipation, unspecified - Constipation, unspecified - Dependence on supplemental oxygen - Dependence on supplemental oxygen - manager long term care (current) use of inhaled steroids - shelter (current) use of inhaled steroids - Nicotine dependence, cigarettes, uncomplicated - Nicotine dependence, cigarettes, uncomplicated - Other terminal makeup operator (current) drug therapy - Other terminal makeup operator (current) drug therapy - Other specified postprocedural states - Other specified postprocedural states - Pneumonia, unspecified organism [email or web address]
[2025-10-04] MEDS ORDERED: LINZESS145 MCG PO (14:56)
[2025-10-04] MEDS ORDERED: ALBUTEROL/IPRATROPIUM 3 ML NEB INH PRN (15:15)
[2025-10-04 15:34] LABS: BASOPHILS 0.7 % (0.1-1.2); EOSINOPHILS 1.7 % (0.7-5.8); LYMPHOCYTES 29.7 % (19.3-51.7); MCH 29.0 PG (25.6-32.2); MCHC 32.2 g/dL (32.2-35.5); MCV 90.1 fL (79.4-94.8); MONOCYTES 7.7 % (4.7-12.5); NEUTROPHILS 59.9 % (34.0-71.1); RBC 4.65 M/uL (3.93-5.22)
[2025-10-04 15:52] LABS: ALT (SGPT) 15.0 U/L (14-59); AST (SGOT) 6.0 U/L (15-37); GLOMERULAR FILTRATION RATE,EST 83.0 mL/min (>60); PROTEIN, TOTAL 7.2 g/dL (6.4-8.2); UREA NITROGEN 7.0 mg/dL (7-18)
[2025-10-04] MEDS ORDERED: PREDNISONE20 MG PO (16:15)
[2025-10-04] MEDS ORDERED: predniSONE 20 MG TAB PO ONE (16:30)
[2025-10-04 16:31] VITALS: BP 124/99
--- NOTE | 2025-10-06 07:31 | EKG ---
[facility] [address] [facility] [place] [address] Signed Normal sinus rhythm Nonspecific ST abnormality Abnormal ECG No previous ECGs available Confirmed by Enzo Whitley DO ([id number]) on 10/06/2025 7:31:09 AM Electronically Signed By: ENZO WHITLEY DO 10/06/25 0731 PATIENT NAME: JENA GOMEZ SHRUTI Electrocardiogram DATE OF : 62 PHYSICIAN: ENZO WHITLEY DO REPORT #: [id number] REPORT IS CONFIDENTIAL AND NOT TO BE RELEASED WITHOUT AUTHORIZATION
== END 2025-10-04 16:31 | disposition home or self-care (01) ==
LOC: ED 14:04
PROVIDERS: Emergency Medicine
DX: J44.1 Chronic obstructive pulmonary disease with (acute) exacerbation (principal); F17.200 Nicotine dependence, unspecified, uncomplicated; Z79.51 Long term (current) use of inhaled steroids; Z79.899 Other long term (current) drug therapy
CPT/HCPCS: 36415; 71045; 80053; 83735; 84484; 85025; 93005; 93010; 94640; 99285-25; J7512